=== PATIENT | male | born 1955 | race Caucasian/White ===

== ENCOUNTER → 2017-07-18 | Outpatient (CLI) | payer BC ==
[~2017-07-18] MED LIST: AMLO-114 PO; HYDR100T12 PO; LISI-788 PO; METO-479 PO
[2017-07-18 12:18] LABS: HEMATOCRIT 39.7 % (42-52); MEAN CELL VOLUME 83.8 fL (80-100); MEAN CORPUSCULAR HEMOGLOBIN 27.4 pg (25-34); MEAN CORPUSCULAR HGB CONC 32.7 g/dl (32-36); MEAN PLATELET VOLUME 9.6 fL (7.4-10.4); PLATELET COUNT 319 K/uL (130-400); RED BLOOD COUNT 4.74 M/uL (4.7-6.1); WHITE BLOOD COUNT 6.92 K/uL (4.8-10.8)
[2017-07-18 12:29] LABS: INR 0.9 (0.9-1.1); PARTIAL THROMBOPLASTIN RATIO 1.1; PROTHROMBIN TIME (PATIENT) 9.9 SECONDS (9.0-12.0)
[2017-07-18 13:02] LABS: BLOOD UREA NITROGEN 19 mg/dl (7-18); CALCIUM 9.1 mg/dl (8.5-10.1); CARBON DIOXIDE 28 mmol/L (21-32); CHLORIDE 104 mmol/L (98-107); CREATININE 1.13 mg/dl (0.60-1.40); GLUCOSE 106 mg/dl (70-99); SODIUM 138 mmol/L (136-145)
== END | disposition home or self-care (01) ==
LOC: C.LABPBG 10:40
PROVIDERS: ATTEND Internal Medicine Interventional Cardiology
DX: Z01.810 Encounter for preprocedural cardiovascular examination (principal)

== ENCOUNTER 2021-01-16 16:03 | Inpatient (IN) ==
[2021-01-16] MEDS ORDERED: SODIUM CHLORIDE 0.9% 1000ML 1,000 ML IV ONE ×2 (16:08→17:20)
--- NOTE | 2021-01-16 16:17 | Emergency Department Note ---
History of Present Illness General Chief complaint: Illness Stated complaint: UNRESPONSIVE History of Present Illness Provider complaint: Weakness syncope Onset (ago): day(s) 1 Location: abdomen Associated symptoms: + diaphoresis, + syncope and + weakness; no chest pain, no fever/chills, no headaches, no nausea/vomiting and no shortness of breath 65-year-old male on Coumadin presents emergency department for weakness and syncope. Patient arrives via EMS. Patient reports he was feeling weak today. EMS reports the patient was hypotensive on arrival. Patient reports he lost consciousness once earlier today. EMS reports they started fluids on the patient 600 cc normal saline was given and EMS reports that the patient did have a syncopal episode while sitting on the gurney in the ambulance. Per EMS the patient was diaphoretic also. Patient reports that he had a recent endoscopy at [facility] and has been having l eft lower quadrant abdominal pain. No chest pain. No hemoptysis. No difficulty breathing. Patient did receive 1 dose of the COVID-19 vaccine that was [employer]. Home Medications Medication Instructions Recorded Confirmed Type cetirizine 10 mg PO QAM PRN 02/04/20 01/16/21 History lisinopril-hydrochlorothiazide 1 tab PO BID 02/04/20 01/16/21 History spironolactone 25 mg PO QAM 02/04/20 01/16/21 History metronidazole 0.75 % topical gel 1 applic TOPICAL PRN g 09/16/20 01/16/21 History sildenafil (pulm.hypertension) 20 20 mg PO PRN tab 09/16/20 01/16/21 History mg tablet acetaminophen 500 mg capsule 1,000 mg PO BID PRN cap 10/29/20 01/16/21 History metoprolol succinate 25 mg 25 mg PO QPM tab 10/29/20 01/16/21 History tablet,extended release 24 hr furosemide 20 mg tablet 20 mg PO DAILY PRN 12/03/20 01/16/21 History cholecalciferol (vitamin D3) 25 25 mcg PO DAILY 01/10/21 01/16/21 History mcg (1,000 unit) capsule diclofenac sodium 1 % topical gel 1 ea TOPICAL QID PRN 01/10/21 01/16/21 History warfarin 10 mg tablet 5 - 10 mg PO UD tab 01/10/21 01/16/21 History Allergies Allergy/AdvReac Type Severity Reaction Status Date / Time gabapentin AdvReac Intermediate see Verified 01/16/21 18:54 comment: shortness of breath,palpitations Past Med/Surg History Medical History Atrial fibrillation hx, converted to SR on own, asymptomatic since 12/10 Chronic venous insufficiency Has followed with vascular, had attempted L GSV ablation, complicated by knotted guidewire requiring surgical de-tanglement Hypertension Left ventricular dysfunction Per most recent cardio note, EF is in the range of 45%, "possibly nonischemic" Lumbar foraminal stenosis Morbid obesity On anticoagulant therapy Sleep apnea BI-PAP Surgical History History of colonoscopy History of vascular surgery attempted L GSV ablation, complicated by knotted guidewire requiring surgical de-tanglement Social History Smoking Status: Never smoker Second Hand Exposure: No; Hx Alcohol Use: No Hx Substance Use: No Preferred Language: Icelandic Communication Ability: Effective Delivery Supervisor Required: No Beliefs That Will Affect Care: None Current Living Situation: Spouse Other Information That Helps Us Care for You: No Feels Safe at Home: Yes Safety Concerns: Feels Safe At This Time Assistive Devices: BiPap and Glasses Review of Systems A total of 10 systems reviewed and were otherwise negative Physical Exam Vital Signs Vital Signs - 24 hr 01/16/21 16:11 01/16/21 16:29 01/16/21 16:31 Temperature 36.7 C Temperature Source Oral Pulse Rate 107 H 95 H 99 H Pulse Rate from SpO2 Sensor 91 H 99 H Pulse Rhythm Regular Pulse Strength Normal Respiratory Rate 20 19 21 Respiratory Effort / Characteristics Non-Labored Spontaneous Respiratory Depth Normal Respiratory Pattern Regular Blood Pressure 125/78 63/46 L 72/51 L Blood Pressure Mean 93 51 58 Blood Pressure Position Sitting Pulse Oximetry 98 97 96 Oxygen Delivery Method Room Air Sepsis Recent Fever Within 48 Hours No Sepsis New/Unexplained Change in Mental Status No Sepsis Action Taken by Nursing No Action Required 01/16/21 16:38 01/16/21 16:45 01/16/21 17:00 Temperature Temperature Source Pulse Rate 100 H 100 H Pulse Rate from SpO2 Sensor 100 H 97 H Pulse Rhythm Pulse Strength Respiratory Rate 20 20 18 Respiratory Effort / Characteristics Non-Labored Spontaneous Respiratory Depth Respiratory Pattern Blood Pressure 89/51 L 65/32 L Blood Pressure Mean 63 43 Blood Pressure Position Pulse Oximetry 95 96 Oxygen Delivery Method Sepsis Recent Fever Within 48 Hours Sepsis New/Unexplained Change in Mental Status Sepsis Action Taken by Nursing 01/16/21 17:02 01/16/21 17:19 01/16/21 17:54 Temperature Temperature Source Pulse Rate 97 H 99 H 102 H Pulse Rate from SpO2 Sensor 97 H 100 H 102 H Pulse Rhythm Pulse Strength Respiratory Rate 25 H 19 22 Respiratory Effort / Characteristics Respiratory Depth Respiratory Pattern Blood Pressure 73/32 L 96/49 L 111/62 Blood Pressure Mean 45 64 78 Blood Pressure Position Pulse Oximetry 96 99 97 Oxygen Delivery Method Sepsis Recent Fever Within 48 Hours Sepsis New/Unexplained Change in Mental Status Sepsis Action Taken by Nursing 01/16/21 18:00 01/16/21 18:03 01/16/21 18:15 Temperature Temperature Source Pulse Rate 110 H 108 H Pulse Rate from SpO2 Sensor 109 H 109 H Pulse Rhythm Pulse Strength Respiratory Rate 24 21 Respiratory Effort / Characteristics Respiratory Depth Respiratory Pattern Blood Pressure 95/68 L 79/61 L Blood Pressure Mean 77 67 Blood Pressure Position Pulse Oximetry 98 98 97 Oxygen Delivery Method Room Air Sepsis Recent Fever Within 48 Hours Sepsis New/Unexplained Change in Mental Status Sepsis Action Taken by Nursing 01/16/21 18:25 01/16/21 18:31 01/16/21 18:45 Temperature Temperature Source Pulse Rate Pulse Rate from SpO2 Sensor 102 H 98 H 98 H Pulse Rhythm Pulse Strength Respiratory Rate Respiratory Effort / Characteristics Respiratory Depth Respiratory Pattern Blood Pressure 94/65 L 132/92 112/71 Blood Pressure Mean 74 105 84 Blood Pressure Position Pulse Oximetry 99 98 96 Oxygen Delivery Method Sepsis Recent Fever Within 48 Hours Sepsis New/Unexplained Change in Mental Status Sepsis Action Taken by Nursing 01/16/21 19:00 01/16/21 19:15 01/16/21 19:21 Temperature Temperature Source Pulse Rate 108 H 107 H Pulse Rate from SpO2 Sensor 95 H 105 H 108 H Pulse Rhythm Pulse Strength Respiratory Rate 15 24 Respiratory Effort / Characteristics Respiratory Depth Respiratory Pattern Blood Pressure 98/62 L Blood Pressure Mean 74 Blood Pressure Position Pulse Oximetry 97 96 97 Oxygen Delivery Method Sepsis Recent Fever Within 48 Hours Sepsis New/Unexplained Change in Mental Status Sepsis Action Taken by Nursing 01/16/21 19:30 Temperature Temperature Source Pulse Rate 104 H Pulse Rate from SpO2 Sensor 105 H Pulse Rhythm Pulse Strength Respiratory Rate 12 Respiratory Effort / Characteristics Respiratory Depth Respiratory Pattern Blood Pressure 115/72 Blood Pressure Mean 86 Blood Pressure Position Pulse Oximetry 97 Oxygen Delivery Method Sepsis Recent Fever Within 48 Hours Sepsis New/Unexplained Change in Mental Status Sepsis Action Taken by Nursing Physical Exam GENERAL: He is oriented to person, place, and time. He appears well-developed and well-nourished. He does not appear distressed. HENT: Exam performed. - Head: Normocephalic and atraumatic. - Right Ear: External ear normal. No mastoid tenderness. - Left Ear: External ear normal. No mastoid tenderness. - Mouth/Throat: The oropharynx is clear and moist. No trismus in the jaw. No dental abscesses or uvula swelling. No oropharyngeal exudate or tonsillar abscesses. EYES: Conjunctivae and EOM are normal. Pupils are equal, round, and reactive to light. Right eye exhibits no discharge. Left eye exhibits no discharge. No scleral icterus. NECK: Normal range of motion. Neck supple. No JVD present. No spinous process tenderness present. No carotid bruit present. No rigidity. No tracheal deviation and normal range of motion present. No Brudzinski's sign and no Kernig's sign noted. CV: Tachycardic rate, regular rhythm, normal heart sounds and intact distal pulses. There is no peripheral edema. Palpable radial pulses bue. PULM/CHEST: Effort normal and breath sounds normal. No respiratory distress. No stridor. He has no wheezes. He has no rales. - Chest Wall: He exhibits no tenderness. ABD: The abdomen is soft and obese. Bowel sounds are normal. He has no distension. No mass is present. There is tenderness to the left lower quadrant. There is no rebound, no guarding, no Marr's sign and no tenderness at McBurney's point. Rovsig negative. MUSC/SKEL: Normal range of motion. There is no peripheral edema, tenderness or deformity. LYMPH: No cervical adenopathy. NEURO: He is alert and oriented to person, place, and time. He has normal strength. No cranial nerve deficit or sensory deficit. Coordination and gait normal. GCS eye subscore is 4. GCS verbal subscore is 5. GCS motor subscore is 6. Cerebellar tests wnl. SKIN: Skin is warm and dry. He is not diaphoretic. PSYCH: He has a normal mood and affect. Behavior is normal. Judgment and thought content normal. Procedures EJ/Peripheral Line Arm R: Time Out Performed: Yes Skin Cleansed in Sterile Fashion: Yes Size (gauge): 20 IV Secured and Dressing Applied: Yes Patient Tolerated Procedure: well Additional Comments: US guided Course Course 1603: The patient was evaluated in room A1. A complete history and physical exam was performed Cardiac monitoring: An order was placed for continuous cardiac monitoring. The monitor shows a rate of 110 with sinus tachycardia rhythm 1930: Vital signs improved after fluid bolus. Labs show a hemoglobin of 10.9. Blood cell count of 12.1. INR is therapeutic at 2.8. BUN 63. Creatinine 1.28. Initial lactic acid 3.2. Status post IV fluids the lactate improved to 2.4. Procalcitonin negative. CT of the head is within normal limits. CT of the abdomen showed extensive material in the stomach which could represent hemorrhage or ingested food. Patient has not had any episodes of bleeding or vomiting in the emergency department. Patient will be admitted to the [facility] Dr. Villatoro's team has been notified. Administered Medications Pantoprazole Sodium 40 mg/ (Dextrose) 100 mls @ 20 mls/hr IV Q5H [facility] Stop: 02/15/21 19:49 Last Admin: 01/16/21 20:21 Dose: 8 mg/hr, 20 mls/hr Documented by: [id number] Discontinued Medications Sodium Chloride (Nss 1000ml) 1,000 mls @ 999 mls/hr IV .Q1H1M ONE Stop: 01/16/21 17:08 Last Infusion: 01/16/21 19:39 Dose: 0 mls/hr Documented by: [id number] Admin: 01/16/21 16:26 Dose: 999 mls/hr Documented by: [id number] Sodium Chloride (Nss 1000ml) 1,000 mls @ 125 mls/hr IV .Q8H [facility] Stop: 02/15/21 16:44 Last Infusion: 01/16/21 21:43 Dose: 0 mls/hr Documented by: [id number] Admin: 01/16/21 18:15 Dose: 125 mls/hr Documented by: [id number] Sodium Chloride (Nss 1000ml) 1,000 mls @ 999 mls/hr IV .Q1H1M ONE Stop: 01/16/21 18:20 Last Infusion: 01/16/21 19:39 Dose: 0 mls/hr Documented by: [id number] Admin: 01/16/21 17:22 Dose: 999 mls/hr Documented by: [id number] Pantoprazole Sodium (Protonix Bolus/Drip) 0 mls @ 1 mls/hr IV ONE STA Stop: 01/16/21 19:37 Last Admin: 01/16/21 21:43 Dose: Not Given Documented by: [id number] Pantoprazole Sodium 80 mg/ (Dextrose) 120 mls @ 400 mls/hr IV NOW ONE Stop: 01/16/21 19:53 Last Infusion: 01/16/21 21:42 Dose: 0 mls/hr Documented by: [id number] Admin: 01/16/21 20:03 Dose: 400 mls/hr Documented by: [id number] Phytonadione 5 mg/ Sodium (Chloride) 50.5 mls @ 101 mls/hr IV ONE ONE Stop: 01/16/21 20:28 Last Infusion: 01/16/21 21:43 Dose: 0 mls/hr Documented by: [id number] Admin: 01/16/21 20:40 Dose: 101 mls/hr Documented by: [id number] Ioversol (Optiray 300 100ml) 93 ml IV ONCE ONE Stop: 01/16/21 17:43 Last Admin: 01/16/21 17:42 Dose: 93 ml Documented by: [id number] Ondansetron HCl (Ondansetron Inj 2 Mg/Ml 2 Ml Vial) 4 mg IV NOW STA Stop: 01/16/21 16:47 Last Admin: 01/16/21 17:10 Dose: 4 mg Documented by: [id number] Ondansetron HCl (Ondansetron Inj 2 Mg/Ml 2 Ml Vial) Confirm Administered Dose 4 mg .ROUTE .STK-MED ONE Stop: 01/16/21 16:48 Last Admin: 01/16/21 17:22 Dose: Not Given Documented by: [id number] Medical Decision Making Laboratory Data Result diagrams: 01/16/21 22:29 01/16/21 15:29 Lab Results 01/16/21 01/16/21 01/16/21 Range/Units 15:29 15:29 15:29 WBC 12.10 H (4.8-10.8) K/uL RBC 3.87 L (4.7-6.1) M/uL Hgb 10.9 L (14.0-18.0) g/dL Hct 32.9 L (42-52) % MCV 85.0 (80-100) fL MCH 28.2 (25-34) pg MCHC 33.1 (32-36) g/dL RDW Std Deviation 45.9 (36.4-46.3) fL RDW Coeff of Edison 14.7 H (11.5-14.5) % Plt Count 368 (130-400) K/uL MPV 9.9 (7.4-10.4) fL Immature Gran % (Auto) 0.2 % Neut % (Auto) 78.1 % Lymph % (Auto) 16.8 % Price % (Auto) 4.1 % Eos % (Auto) 0.4 % Baso % (Auto) 0.4 % Neut # (Auto) 9.45 H (1.4-6.5) K/uL Lymph # (Auto) 2.03 (1.2-3.4) K/uL Price # (Auto) 0.50 (0.11-0.59) K/uL Eos # (Auto) 0.05 (0-0.5) K/uL Baso # (Auto) 0.05 (0-0.2) K/uL Immature Gran # (Auto) 0.02 (0.00-0.02) K/uL PT 26.4 H (9.0-12.0) Seconds INR 2.8 H (0.9-1.1) APTT 37.6 H (21.0-31.0) Seconds PTT Ratio 1.4 Sodium 139 (136-145) mmol/L Potassium 4.9 (3.5-5.1) mmol/L Chloride 105 (98-107) mmol/L Carbon Dioxide 23 (21-32) mmol/L Anion Gap 10.0 (3-11) BUN 63 H (7-18) mg/dl Creatinine 1.28 (0.6-1.4) mg/dl Est Cr Clr Drug Dosing 83.9 ml/min Est GFR ( Amer) 68.6 Est GFR (Non-Af Amer) 59.2 BUN/Creatinine Ratio 48.8 H (10-20) Glucose 117 H (70-99) mg/dl Lactate (0.4-2.0) mmol/L Calcium 9.0 (8.5-10.1) mg/dl Magnesium 2.1 (1.8-2.4) mg/dl Total Bilirubin 0.6 (0.2-1) mg/dl AST 13 L (15-37) U/L ALT 18 (12-78) U/L Alkaline Phosphatase 58 (45-117) U/L Troponin I < 0.015 (0-0.045) ng/ml Total Protein 6.6 (6.4-8.2) gm/dl Albumin 2.9 L (3.4-5.0) gm/dl Globulin 3.7 (2.5-4.0) gm/dl Albumin/Globulin Ratio 0.8 L (0.9-2) Procalcitonin (0-0.5) ng/ml Urine Color Urine Appearance (Clear) Urine pH (4.5-7.5) Ur Specific [place] (1.000-1.030) Urine Protein (Negative) Urine Glucose (UA) (Negative) Urine Ketones (Negative) Urine Blood (Negative) Urine Nitrite (Negative) Urine Bilirubin (Negative) Urine Urobilinogen (Negative) Ur Leukocyte Esterase (Negative) COVID-19 Eval Order SARS-CoV-2 (PCR) (Negative) Hepatitis C Ab Screen (Neg) Influenza Type A (PCR) (Neg) Influenza Type B (PCR) (Neg) RSV (RT-PCR) (Neg) Blood Type Antibody Screen Crossmatch 01/16/21 01/16/21 01/16/21 Range/Units 15:29 15:29 16:28 WBC (4.8-10.8) K/uL RBC (4.7-6.1) M/uL Hgb (14.0-18.0) g/dL Hct (42-52) % MCV (80-100) fL MCH (25-34) pg MCHC (32-36) g/dL RDW Std Deviation (36.4-46.3) fL RDW Coeff of Edison (11.5-14.5) % Plt Count (130-400) K/uL MPV (7.4-10.4) fL Immature Gran % (Auto) % Neut % (Auto) % Lymph % (Auto) % Price % (Auto) % Eos % (Auto) % Baso % (Auto) % Neut # (Auto) (1.4-6.5) K/uL Lymph # (Auto) (1.2-3.4) K/uL Price # (Auto) (0.11-0.59) K/uL Eos # (Auto) (0-0.5) K/uL Baso # (Auto) (0-0.2) K/uL Immature Gran # (Auto) (0.00-0.02) K/uL PT (9.0-12.0) Seconds INR (0.9-1.1) APTT (21.0-31.0) Seconds PTT Ratio Sodium (136-145) mmol/L Potassium (3.5-5.1) mmol/L Chloride (98-107) mmol/L Carbon Dioxide (21-32) mmol/L Anion Gap (3-11) BUN (7-18) mg/dl Creatinine (0.6-1.4) mg/dl Est Cr Clr Drug Dosing ml/min Est GFR ( Amer) Est GFR (Non-Af Amer) BUN/Creatinine Ratio (10-20) Glucose (70-99) mg/dl Lactate (0.4-2.0) mmol/L Calcium (8.5-10.1) mg/dl Magnesium (1.8-2.4) mg/dl Total Bilirubin (0.2-1) mg/dl AST (15-37) U/L ALT (12-78) U/L Alkaline Phosphatase (45-117) U/L Troponin I (0-0.045) ng/ml Total Protein (6.4-8.2) gm/dl Albumin (3.4-5.0) gm/dl Globulin (2.5-4.0) gm/dl Albumin/Globulin Ratio (0.9-2) Procalcitonin < 0.05 (0-0.5) ng/ml Urine Color Urine Appearance (Clear) Urine pH (4.5-7.5) Ur Specific [place] (1.000-1.030) Urine Protein (Negative) Urine Glucose (UA) (Negative) Urine Ketones (Negative) Urine Blood (Negative) Urine Nitrite (Negative) Urine Bilirubin (Negative) Urine Urobilinogen (Negative) Ur Leukocyte Esterase (Negative) COVID-19 Eval Order CovFluRsv at [facility] SARS-CoV-2 (PCR) (Negative) Hepatitis C Ab Screen Neg (Neg) Influenza Type A (PCR) (Neg) Influenza Type B (PCR) (Neg) RSV (RT-PCR) (Neg) Blood Type Antibody Screen Crossmatch 01/16/21 01/16/21 01/16/21 Range/Units 16:28 16:37 18:49 WBC (4.8-10.8) K/uL RBC (4.7-6.1) M/uL Hgb (14.0-18.0) g/dL Hct (42-52) % MCV (80-100) fL MCH (25-34) pg MCHC (32-36) g/dL RDW Std Deviation (36.4-46.3) fL RDW Coeff of Edison (11.5-14.5) % Plt Count (130-400) K/uL MPV (7.4-10.4) fL Immature Gran % (Auto) % Neut % (Auto) % Lymph % (Auto) % Price % (Auto) % Eos % (Auto) % Baso % (Auto) % Neut # (Auto) (1.4-6.5) K/uL Lymph # (Auto) (1.2-3.4) K/uL Price # (Auto) (0.11-0.59) K/uL Eos # (Auto) (0-0.5) K/uL Baso # (Auto) (0-0.2) K/uL Immature Gran # (Auto) (0.00-0.02) K/uL PT (9.0-12.0) Seconds INR (0.9-1.1) APTT (21.0-31.0) Seconds PTT Ratio Sodium (136-145) mmol/L Potassium (3.5-5.1) mmol/L Chloride (98-107) mmol/L Carbon Dioxide (21-32) mmol/L Anion Gap (3-11) BUN (7-18) mg/dl Creatinine (0.6-1.4) mg/dl Est Cr Clr Drug Dosing ml/min Est GFR ( Amer) Est GFR (Non-Af Amer) BUN/Creatinine Ratio (10-20) Glucose (70-99) mg/dl Lactate 3.2 H* (0.4-2.0) mmol/L Calcium (8.5-10.1) mg/dl Magnesium (1.8-2.4) mg/dl Total Bilirubin (0.2-1) mg/dl AST (15-37) U/L ALT (12-78) U/L Alkaline Phosphatase (45-117) U/L Troponin I (0-0.045) ng/ml Total Protein (6.4-8.2) gm/dl Albumin (3.4-5.0) gm/dl Globulin (2.5-4.0) gm/dl Albumin/Globulin Ratio (0.9-2) Procalcitonin (0-0.5) ng/ml Urine Color Yellow Urine Appearance Clear (Clear) Urine pH 5.0 (4.5-7.5) Ur Specific [place] 1.031 H (1.000-1.030) Urine Protein Negative (Negative) Urine Glucose (UA) Negative (Negative) Urine Ketones Trace H (Negative) Urine Blood Negative (Negative) Urine Nitrite Negative (Negative) Urine Bilirubin Negative (Negative) Urine Urobilinogen Negative (Negative) Ur Leukocyte Esterase Negative (Negative) COVID-19 Eval Order SARS-CoV-2 (PCR) NEGATIVE (Negative) Hepatitis C Ab Screen (Neg) Influenza Type A (PCR) Negative (Neg) Influenza Type B (PCR) Negative (Neg) RSV (RT-PCR) Negative (Neg) Blood Type Antibody Screen Crossmatch 01/16/21 01/16/21 Range/Units 19:38 19:38 WBC (4.8-10.8) K/uL RBC (4.7-6.1) M/uL Hgb (14.0-18.0) g/dL Hct (42-52) % MCV (80-100) fL MCH (25-34) pg MCHC (32-36) g/dL RDW Std Deviation (36.4-46.3) fL RDW Coeff of Edison (11.5-14.5) % Plt Count (130-400) K/uL MPV (7.4-10.4) fL Immature Gran % (Auto) % Neut % (Auto) % Lymph % (Auto) % Price % (Auto) % Eos % (Auto) % Baso % (Auto) % Neut # (Auto) (1.4-6.5) K/uL Lymph # (Auto) (1.2-3.4) K/uL Price # (Auto) (0.11-0.59) K/uL Eos # (Auto) (0-0.5) K/uL Baso # (Auto) (0-0.2) K/uL Immature Gran # (Auto) (0.00-0.02) K/uL PT (9.0-12.0) Seconds INR (0.9-1.1) APTT (21.0-31.0) Seconds PTT Ratio Sodium (136-145) mmol/L Potassium (3.5-5.1) mmol/L Chloride (98-107) mmol/L Carbon Dioxide (21-32) mmol/L Anion Gap (3-11) BUN (7-18) mg/dl Creatinine (0.6-1.4) mg/dl Est Cr Clr Drug Dosing ml/min Est GFR ( Amer) Est GFR (Non-Af Amer) BUN/Creatinine Ratio (10-20) Glucose (70-99) mg/dl Lactate 2.4 H* (0.4-2.0) mmol/L Calcium (8.5-10.1) mg/dl Magnesium (1.8-2.4) mg/dl Total Bilirubin (0.2-1) mg/dl AST (15-37) U/L ALT (12-78) U/L Alkaline Phosphatase (45-117) U/L Troponin I (0-0.045) ng/ml Total Protein (6.4-8.2) gm/dl Albumin (3.4-5.0) gm/dl Globulin (2.5-4.0) gm/dl Albumin/Globulin Ratio (0.9-2) Procalcitonin (0-0.5) ng/ml Urine Color Urine Appearance (Clear) Urine pH (4.5-7.5) Ur Specific [place] (1.000-1.030) Urine Protein (Negative) Urine Glucose (UA) (Negative) Urine Ketones (Negative) Urine Blood (Negative) Urine Nitrite (Negative) Urine Bilirubin (Negative) Urine Urobilinogen (Negative) Ur Leukocyte Esterase (Negative) COVID-19 Eval Order SARS-CoV-2 (PCR) (Negative) Hepatitis C Ab Screen (Neg) Influenza Type A (PCR) (Neg) Influenza Type B (PCR) (Neg) RSV (RT-PCR) (Neg) Blood Type O Positive Antibody Screen NEGATIVE Crossmatch See Detail Imaging Data Radiologist's Impression: Chest X-Ray 01/16/21 16:08 XR chest 1V portable CLINICAL HISTORY: Sepsis. COMPARISON STUDY: Chest radiograph January 10, 2016. FINDINGS: Lung volumes are normal. Lungs are clear. There is no pneumothorax or pleural effusion. Cardiac size is stable. Mediastinal contours are normal. There is no evidence for pulmonary edema. IMPRESSION: No acute cardiopulmonary findings. ACT 112: Negative or not required by law. Electronically signed by: Adrian Hayes M.D. 01/16/2021 6:08 PM Abdomen/Pelvis CT 01/16/21 16:09 CT OF THE ABDOMEN AND PELVIS WITH CONTRAST CLINICAL HISTORY: Abdominal pain. Recent endoscopy. COMPARISON STUDY: None. TECHNIQUE: Following IV administration of 93 mL of Optiray, axial images of the abdomen and pelvis were obtained from the lung bases to the proximal femurs. Images were reviewed in the axial, sagittal, and coronal planes. IV contrast was administered without complication. Automated exposure control was utilized for the study. A dose lowering technique was utilized adhering to the principles of ALARA. CT DOSE: 2172.35 mGy.cm FINDINGS: Lung bases are unremarkable. No pneumatosis, free air or portal venous gas is present. Extensive mixed attenuation material within the stomach is noted with layering hyperdense material. The stomach is mildly distended. Hepatic steatosis is noted. No hepatic lesions are present. There is no biliary or pancreatic ductal dilatation. The spleen and adrenal glands as well as the left kidney are normal. Note is made of a 5.6 cm water attenuation right renal lesion consistent with a cyst. There is no hydronephrosis. The caliber and wall thickness of small and large bowel are normal. Note is made of colonic diverticulosis without evidence for acute diverticulitis. The appendix is normal. No acute fracture or suspicious lesion is identified within the visualized skeletal structures. IMPRESSION: 1. Extensive mixed attenuation material within the stomach. This probably reflects ingested contents however hemorrhage could appear similar. Correlation with clinical evidence for upper GI bleed is recommended. 2. No pneumoperitoneum. 3. Colonic diverticulosis without evidence for acute diverticulitis. 4. Hepatic steatosis. ACT 112: Negative or not required by law. Electronically signed by: Adrian Hayes M.D. 01/16/2021 6:[address] 01/16/21 16:09 CT OF THE HEAD WITHOUT CONTRAST CLINICAL HISTORY: syncope on coumadin ro ich COMPARISON STUDY: Head CT May 27, 2020. CT DOSE: 884.08 mGy.cm TECHNIQUE: Helical axial images of the head were obtained without IV contrast. Automated exposure control was utilized for the study. A dose lowering technique was utilized adhering to the principles of ALARA. FINDINGS: No acute intracranial hemorrhage, midline shift or mass effect is present. The ventricular system is unremarkable. The basal cisterns are patent. No extra-axial collections are present. There are no findings to suggest acute dural sinus thrombosis or acute territorial infarct. No significant calvarial abnormalities are present. Visualized portions of the sinuses and mastoid air cells are clear. IMPRESSION: No acute intracranial findings. ACT 112: Negative or not required by law. Electronically signed by: Adrian Hayes M.D. 01/16/2021 6:10 PM ECG Data Indication: + weakness Rate (beats per minute): 106 Rhythm: + sinus with SA ECG Intervals/blocks: + Normal QRS, + Normal NM and + Normal QT-c ECG ST segments: + Normal ST segments MDM Narrative 1603: The patient was evaluated in room A1. A complete history and physical exam was performed Cardiac monitoring: An order was placed for continuous cardiac monitoring. The monitor shows a rate of 110 with sinus tachycardia rhythm 1930: Vital signs improved after fluid bolus. Labs show a hemoglobin of 10.9. Blood cell count of 12.1. INR is therapeutic at 2.8. BUN 63. Creatinine 1.28. Initial lactic acid 3.2. Status post IV fluids the lactate improved to 2.4. Procalcitonin negative. CT of the head is within normal limits. CT of the abdomen showed extensive material in the stomach which could represent hemorrhage or ingested food. Patient has not had any episodes of bleeding or vomiting in the emergency department. Patient will be admitted to the [facility] Dr. Villatoro's team has been notified. Impression & Plan Syncope, Dehydration Discharge Plan Visit Data Chief Complaint: Illness Stated Complaint: UNRESPONSIVE ED Provider: Manuel Akhtar Discharge Problem: Syncope, Dehydration Patient Disposition: Admitted As Inpatient Discharge Instructions Interventions: ED Discharge Assessment Last Done: 01/16/21 20:51 Discharge Problem: Syncope Qualifiers: Syncope type: unspecified Qualified Code(s): R55 - Syncope and collapse
[2021-01-16 16:21] LABS: Basophils # (auto) 0.05 K/uL (0-0.2); Basophils % (auto) 0.4 %; Eosinophils # (auto) 0.05 K/uL (0-0.5); Eosinophils % (auto) 0.4 %; Hematocrit (blood only) 32.9 % (42-52); Hemoglobin 10.9 g/dL (14.0-18.0); Immature Granulocytes # (auto) 0.02 K/uL (0.00-0.02); Immature Granulocytes % (auto) 0.2 %; Lymphocytes # (auto) 2.03 K/uL (1.2-3.4); Lymphocytes % (auto) 16.8 %; Mean Corpuscular Hemoglobin 28.2 pg (25-34); Mean Corpuscular Hgb Conc 33.1 g/dL (32-36); Mean Platelet Volume 9.9 fL (7.4-10.4); Monocytes % (auto) 4.1 %; Neutrophils # (auto) 9.45 K/uL (1.4-6.5); Neutrophils % (auto) 78.1 %; Platelet Count 368 K/uL (130-400); RDW Coefficient of Variation 14.7 % (11.5-14.5); RDW Standard Deviation 45.9 fL (36.4-46.3); Red Blood Count 3.87 M/uL (4.7-6.1)
[2021-01-16 16:29] LABS: INR 2.8 (0.9-1.1); Partial Thromboplastin Ratio 1.4; Partial Thromboplastin Time 37.6 Seconds (21.0-31.0); Prothrombin Time 26.4 Seconds (9.0-12.0)
[2021-01-16 16:34] LABS: Alanine Aminotransferase 18 U/L (12-78); Albumin Level 2.9 gm/dl (3.4-5.0); Aspartate Aminotransferase 13 U/L (15-37); BUN Creatinine Ratio 48.8 (10-20); Blood Urea Nitrogen 63 mg/dl (7-18); Carbon Dioxide 23 mmol/L (21-32); Chloride 105 mmol/L (98-107); Creatinine Clr Calc Pharmacy 83.9 ml/min; Est GFR (African American) 68.6; Est GFR (Non-African American) 59.2; Glucose 117 mg/dl (70-99); Magnesium 2.1 mg/dl (1.8-2.4); Potassium 4.9 mmol/L (3.5-5.1); Sodium 139 mmol/L (136-145)
[2021-01-16 16:39] LABS: Albumin Globulin Ratio 0.8 (0.9-2); Alkaline Phosphatase 58 U/L (45-117); Bilirubin,Total 0.6 mg/dl (0.2-1); Globulin 3.7 gm/dl (2.5-4.0); Total Protein 6.6 gm/dl (6.4-8.2); Troponin I < 0.015 ng/ml (0-0.045)
[2021-01-16] MEDS ORDERED: SODIUM CHLORIDE 0.9% 1000ML 1,000 ML IV SCH (16:45)
[2021-01-16] MEDS ORDERED: ONDANSETRON INJ 2 MG/ML 2 ML VIAL IV STA (16:46)
[2021-01-16] MEDS ORDERED: ONDANSETRON INJ 2 MG/ML 2 ML VIAL ONE (16:47)
[2021-01-16 17:20] LABS: Influenza A virus by PCR Negative (Neg); Influenza B virus by PCR Negative (Neg); RSV by PCR Negative (Neg); SARS CoV2 RNA(COVID-19) InHosp NEGATIVE (Negative)
[2021-01-16] MEDS ORDERED: OPTIRAY 300 100mL IV ONE (17:42)
--- NOTE | 2021-01-16 18:09 | XRay Report ---
XR chest 1V portable CLINICAL HISTORY: Sepsis. COMPARISON STUDY: Chest radiograph January 10, 2016. FINDINGS: Lung volumes are normal. Lungs are clear. There is no pneumothorax or pleural effusion. Car diac size is stable. Mediastinal contours are normal. There is no evidence for pulmonary edema. IMPRESSION: No acute cardiopulmonary findings. ACT 112: Negative or not required by law. Electronically signed by: Adrian Hayes M.D. 01/16/2021 6:08 PM
--- NOTE | 2021-01-16 18:12 | CT Scan Report ---
CT OF THE HEAD WITHOUT CONTRAST CLINICAL HISTORY: syncope on coumadin ro ich COMPARISON STUDY: Head CT May 27, 2020. CT DOSE: 884.08 mGy.cm TECHNIQUE: Helical axial images of the head were obtained without IV contrast. Automated exposure con trol was utilized for the study. A dose lowering technique was utilized adhering to the principles o f ALARA. FINDINGS: No acute intracranial hemorrhage, midline shift or mass effect is present. The ventricular system is unremarkable. The basal cisterns are patent. No extra-axial collections are present. There are no findings to suggest acute dural sinus thrombosis or acute territorial infarct. No significant calvarial abnormalities are present. Visualized portions of the sinuses and mastoid air cells are cristiane ar. IMPRESSION: No acute intracranial findings. ACT 112: Negative or not required by law. Electronically signed by: Adrian Hayes M.D. 01/16/2021 6:10 PM
--- NOTE | 2021-01-16 18:33 | CT Scan Report ---
CT OF THE ABDOMEN AND PELVIS WITH CONTRAST CLINICAL HISTORY: Abdominal pain. Recent endoscopy. COMPARISON STUDY: None. TECHNIQUE: Following IV administration of 93 mL of Optiray, axial images of the abdomen and pelvis we re obtained from the lung bases to the proximal femurs. Images were reviewed in the axial, sagittal, and coronal planes. IV contrast was administered without complication. Automated exposure control wa s utilized for the study. A dose lowering technique was utilized adhering to the principles of ALARA . CT DOSE: 2172.35 mGy.cm FINDINGS: Lung bases are unremarkable. No pneumatosis, free air or portal venous gas is present. Exte nsive mixed attenuation material within the stomach is noted with layering hyperdense material. The s tomach is mildly distended. Hepatic steatosis is noted. No hepatic lesions are present. There is no b iliary or pancreatic ductal dilatation. The spleen and adrenal glands as well as the left kidney are normal. Note is made of a 5.6 cm water attenuation right renal lesion consistent with a cyst. There i s no hydronephrosis. The caliber and wall thickness of small and large bowel are normal. Note is made of colonic diverticulosis without evidence for acute diverticulitis. The appendix is normal. No acut e fracture or suspicious lesion is identified within the visualized skeletal structures. IMPRESSION: 1. Extensive mixed attenuation material within the stomach. This probably reflects ingested contents however hemorrhage could appear similar. Correlation with clinical evidence for upper GI bleed is rec ommended. 2. No pneumoperitoneum. 3. Colonic diverticulosis without evidence for acute diverticulitis. 4. Hepatic steatosis. ACT 112: Negative or not required by law. Electronically signed by: Adrian Hayes M.D. 01/16/2021 6:32 PM
[2021-01-16 18:56] LABS: Appearance Urine Clear (Clear); Bilirubin Urine Negative (Negative); Blood Urine Negative (Negative); Color Urine Yellow; Glucose Urine UA Negative (Negative); Ketones Urine Trace (Negative); Leukocyte Esterase Urine Negative (Negative); Nitrite Urine Negative (Negative); Protein Urine Negative (Negative); Specific Gravity Urine 1.031 (1.000-1.030); Urobilinogen Urine Negative (Negative)
[2021-01-16] MEDS ORDERED: PANTOPRAZOLE BOLUS/DRIP 1 EA IV STA (19:36)
[2021-01-16] MEDS ORDERED: PANTOprazole 80 MG in DEXTROSE 5% 100 ML IV ONE (19:36)
--- NOTE | 2021-01-16 19:41 | History & Physical Report ---
Date of Service January 16, 2021 Assessment & Plan (1) UGI bleed: Patient presented hypotensive, syncope x2, HGB 10.9, and dark stool x1 this morning--- HGB 13.6 on [id number] - [place]- 10 - Type and screen done - consented for blood - Large bore IV x2- - Protonix bolus and drip - NPO - HGB at 2200- transfuse if HGB drops, evidence of ongoing blood loss - NGT if hematemesis - GI consulted - Vitamin K 5 mg IV- INR 2.8- Patient in NSR has been for some while. - Trend Troponin I and ECG with nonspecific changes as acute blood loss was likely this morning His BP is stabilized 115/72 MAP >75. HR low 100 as above (2) Duodenitis: As above - Continue on PPI as outpatient (3) HTN (hypertension): Hold all antihypertensives - Restart when hemodynamically stable (4) Morbid obesity: No acute needs (5) Venous stasis ulcer: Chronic, no acute needs (6) Afib: restart metoprlol when able - Continue BIPAP (7) Diastolic CHF: Preserved EF - Hold diuretics until hemodynamically stable (8) DIANDRA treated with BiPAP: BIPAP 12/06 or titrate to patient needs for adequate VT and SPO2. (9) CKD (chronic kidney disease), stage III: He has a baseline [employer] of 1.31 and BUN 22 on April - BUN elevated with GI bleed - Follow [employer] History of Present Illness Chief Complaint: light headedness and syncope Primary Care Provider: Black Cruz MD 65 YOM with past history of atrial fibrillation on Coumadin. He had afib ~2 years ago and after he was started on his BIPAP for DIANDRA, he went back into NSR, also has HTN, PVD with right GSV ablation, HFpEF with mild LVH grade I diastolic dysfunction, chronic left hip pain. He was getting evaluated for bariatric surgery. He went to [place] last week to get an EGD in which he got 2 biopsies. His report was positive for active duodenitis with reactive epithelial cell and gastric metaplasia consistent with peptic duodenitis, GE junction with squamous reactive epithelial changes and severely inflamed mucosa with goblet cells. He called 911 this morning for 2 periods of lightheadedness, dizziness, and paleness. He awoke at 700 this morning and sat on the edge of the bed and got weak, sweaty, and dizzy. He got to the bathroom, and went back to bed because he was so tired felling. He got up at 0900 had a dark black stool that was formed, he has never had this before. He got back up at 1000 and felt like he was going to throw up, his went to get a bucket and when she came back he was passed out on the bed, this lasted few seconds. He came to on his own and she checked his blood pressure; it was noted to be 80's systolic, with pulse 11 0. He again was pale, diaphoretic, and lightheaded. EMS brought him in and reported another episode of syncope. In the EMD he got a CT scan of his abdomen and 3 liters of 0.9% saline in response to his hypotension. The Hospitalist team was then notified for admission. Upon my evaluation the patient was noted to be awake alert, HR 100's and BP >100 with MAPS >65. He was then typed and screened, consented for blood by my staff Dr. Villatoro, and a second IV was obtained to his AC, Protonix bolus and drip was ordered. Patient will be admitted to PCU for trending of his hemodynamics as well as CBC. Will give 5mg Vitamin K. NPO for now. GI consulted. Upon further review the patient has been taking Celebrex for his left hip pain that is chronically been bothering him. He was asked to stop that 3 weeks ago secondary to worsening of his GFR. He reports normal diet and has successfully lost 20 pounds on purpose in preparation for his Bariatric appointments. He last ate [id number] dinner around 1800. He has been having epigastric pain for the past 3 weeks that does get worse when he eats. The pain is sharp and comes and goes. He denies any other chest discomfort or dyspnea. Allergies Allergy/AdvReac Type Severity Reaction Status Date / Time gabapentin AdvReac Intermediate see Verified 01/16/21 18:54 comment: shortness of breath,palpitations Home Medications Medication Instructions Recorded Confirmed Type cetirizine 10 mg PO QAM PRN 02/04/20 01/16/21 History lisinopril-hydrochlorothiazide 1 tab PO BID 02/04/20 01/16/21 History spironolactone 25 mg PO QAM 02/04/20 01/16/21 History metronidazole 0.75 % topical gel 1 applic TOPICAL PRN g 09/16/20 01/16/21 History sildenafil (pulm.hypertension) 20 20 mg PO PRN tab 09/16/20 01/16/21 History mg tablet acetaminophen 500 mg capsule 1,000 mg PO BID PRN cap 10/29/20 01/16/21 History metoprolol succinate 25 mg 25 mg PO QPM tab 10/29/20 01/16/21 History tablet,extended release 24 hr furosemide 20 mg tablet 20 mg PO DAILY PRN 12/03/20 01/16/21 History cholecalciferol (vitamin D3) 25 25 mcg PO DAILY 01/10/21 01/16/21 History mcg (1,000 unit) capsule diclofenac sodium 1 % topical gel 1 ea TOPICAL QID PRN 01/10/21 01/16/21 History warfarin 10 mg tablet 5 - 10 mg PO UD tab 01/10/21 01/16/21 History Past Med/Surg History Medical History Atrial fibrillation hx, converted to SR on own, asymptomatic since 12/10 Chronic venous insufficiency Has followed with vascular, had attempted L GSV ablation, complicated by knotted guidewire requiring surgical de-tanglement Hypertension Left ventricular dysfunction Per most recent cardio note, EF is in the range of 45%, "possibly nonischemic" Lumbar foraminal stenosis Morbid obesity On anticoagulant therapy Sleep apnea BI-PAP Surgical History History of colonoscopy History of vascular surgery attempted L GSV ablation, complicated by knotted guidewire requiring surgical de-tanglement Social History Smoking Status: Never smoker Second Hand Exposure: No; Hx Alcohol Use: Yes Alcohol type: beer and wine Hx Substance Use: No Preferred Language: Swedish Communication Ability: Effective Online Media Director Required: No Beliefs That Will Affect Care: None Current Living Situation: Spouse Feels Safe at Home: Yes Assistive Devices: BiPap and Glasses Review of Systems Review of Systems: REVIEW OF SYSTEMS: Constitutional: No fever, sweats or chills Eyes: No diplopia, no worsening or blurred vision ENT: normal hearing, no trouble swallowing Respiratory: No cough, sputum, dyspnea at rest or on exertion Cardiovascular: No chest pain, tightness or palpitations Abdomen: (+) epigastric pain, nausea, dark stool, (-) vomiting, diarrhea or constipation Musculoskeletal: (+) left hip joint pain and back pain, (-) calf pain, swelling Neurologic: No weakness, numbness/tingling, or balance problems Psychiatric: No anxiety or depression Skin: No rash or itch Physical Exam Physical Exam: PHYSICAL EXAM: General: awake, alert, no apparent distress Head: Normocephalic, atraumatic ENT: PERRL, EOMI, no pharyngeal exudate, mucous membranes moist Neuro: AAO x 3, speech clear and appropriate, strength intact bilaterally 5/5, sensation intact and equal all extremities and dermatomes, no pronator drift Chest: equal rise and fall of the chest, no accessory muscle use, no heaves or thrills, Clear to auscultation, on room air, Cardiac: Regular rate and rhythm, telemetry reviewed NSR tachycardia no ectopy, skin warm dry, cap refill <3 seconds, peripheral pulses +2 no JVD, no murmur, no edema, venous discoloration to lower legs GI: NABS x 4 quadrants, soft, nontender to palpation, no rebound, guarding or tenderness with deep or light palpation, Dark stool this morning. NO further BM or Vomitting : Spontaneously voiding, no pain, no CVA tenderness, Extremities:no peripheral edema or erythema, calfs nontender to palpation Psych: Normal mood and affect Skin: no rash or erythema Results & Data Results & Data ([facility]) Vital Signs (Past 12 Hours) Vital Signs Temp Pulse Resp BP Pulse Ox 01/16/21 18:45 112/71 96 01/16/21 18:31 132/92 98 01/16/21 18:25 94/65 L 99 01/16/21 18:15 108 H 21 79/61 L 97 01/16/21 18:03 98 01/16/21 18:00 110 H 24 95/68 L 98 01/16/21 17:54 102 H 22 111/62 97 01/16/21 17:19 99 H 19 96/49 L 99 01/16/21 17:02 97 H 25 H 73/32 L 96 04/25/21 17:00 100 H 18 65/32 L 96 01/16/21 16:45 100 H 20 89/51 L 95 01/16/21 16:38 20 01/16/21 16:31 99 H 21 72/51 L 96 01/16/21 16:29 95 H 19 63/46 L 97 01/16/21 16:11 36.7 C 107 H 20 125/78 98 Laboratory Results Abnormal lab results 01/16/21 01/16/21 01/16/21 Range/Units 15:29 15:29 15:29 WBC 12.10 H (4.8-10.8) K/uL RBC 3.87 L (4.7-6.1) M/uL Hgb 10.9 L (14.0-18.0) g/dL Hct 32.9 L (42-52) % RDW Coeff of Edison 14.7 H (11.5-14.5) % Neut # (Auto) 9.45 H (1.4-6.5) K/uL PT 26.4 H (9.0-12.0) Seconds INR 2.8 H (0.9-1.1) APTT 37.6 H (21.0-31.0) Seconds BUN 63 H (7-18) mg/dl BUN/Creatinine Ratio 48.8 H (10-20) Glucose 117 H (70-99) mg/dl Lactate (0.4-2.0) mmol/L AST 13 L (15-37) U/L Albumin 2.9 L (3.4-5.0) gm/dl Albumin/Globulin Ratio 0.8 L (0.9-2) Ur Specific [place] (1.000-1.030) Urine Ketones (Negative) 01/16/21 01/16/21 01/16/21 Range/Units 16:37 18:49 19:38 WBC (4.8-10.8) K/uL RBC (4.7-6.1) M/uL Hgb (14.0-18.0) g/dL Hct (42-52) % RDW Coeff of Edison (11.5-14.5) % Neut # (Auto) (1.4-6.5) K/uL PT (9.0-12.0) Seconds INR (0.9-1.1) APTT (21.0-31.0) Seconds BUN (7-18) mg/dl BUN/Creatinine Ratio (10-20) Glucose (70-99) mg/dl Lactate 3.2 H* 2.4 H* (0.4-2.0) mmol/L AST (15-37) U/L Albumin (3.4-5.0) gm/dl Albumin/Globulin Ratio (0.9-2) Ur Specific [place] 1.031 H (1.000-1.030) Urine Ketones Trace H (Negative) Diagnostic Findings CT OF THE ABDOMEN AND PELVIS WITH CONTRAST CLINICAL HISTORY: Abdominal pain. Recent endoscopy. COMPARISON STUDY: None. TECHNIQUE: Following IV administration of 93 mL of Optiray, axial images of the abdomen and pelvis were obtained from the lung bases to the proximal femurs. Images were reviewed in the axial, sagittal, and coronal planes. IV contrast was administered without complication. Automated exposure control was utilized for the study. A dose lowering technique was utilized adhering to the principles of ALARA. CT DOSE: 2172.35 mGy.cm FINDINGS: Lung bases are unremarkable. No pneumatosis, free air or portal venous gas is present. Extensive mixed attenuation material within the stomach is noted with layering hyperdense material. The stomach is mildly distended. Hepatic steatosis is noted. No hepatic lesions are present. There is no biliary or pancreatic ductal dilatation. The spleen and adrenal glands as well as the left kidney are normal. Note is made of a 5.6 cm water attenuation right renal lesion consistent with a cyst. There is no hydronephrosis. The caliber and wall thickness of small and large bowel are normal. Note is made of colonic diverticulosis without evidence for acute diverticulitis. The appendix is normal. No acute fracture or suspicious lesion is identified within the visualized skeletal structures. IMPRESSION: 1. Extensive mixed attenuation material within the stomach. This probably reflects ingested contents however hemorrhage could appear similar. Correlation with clinical evidence for upper GI bleed is recommended. 2. No pneumoperitoneum. 3. Colonic diverticulosis without evidence for acute diverticulitis. 4. Hepatic steatosis. CT OF THE HEAD WITHOUT CONTRAST CLINICAL HISTORY: syncope on coumadin ro ich COMPARISON STUDY: Head CT May 27, 2020. CT DOSE: 884.08 mGy.cm TECHNIQUE: Helical axial images of the head were obtained without IV contrast. Automated exposure control was utilized for the study. A dose lowering technique was utilized adhering to the principles of ALARA. FINDINGS: No acute intracranial hemorrhage, midline shift or mass effect is present. The ventricular system is unremarkable. The basal cisterns are patent. No extra-axial collections are present. There are no findings to suggest acute dural sinus thrombosis or acute territorial infarct. No significant calvarial abnormalities are present. Visualized portions of the sinuses and mastoid air cells are clear. IMPRESSION: No acute intracranial findings. Medications Administered Sodium Chloride (Nss 1000ml) 1,000 mls @ 125 mls/hr IV .Q8H HONORIO Stop: 02/15/21 16:44 Last Admin: 01/16/21 18:15 Dose: 125 mls/hr Documented by: [id number] Pantoprazole Sodium 40 mg/ (Dextrose) 100 mls @ 20 mls/hr IV Q5H HONORIO Stop: 02/15/21 19:49 Last Admin: 01/16/21 20:21 Dose: 8 mg/hr, 20 mls/hr Documented by: [id number] Discontinued Medications Sodium Chloride (Nss 1000ml) 1,000 mls @ 999 mls/hr IV .Q1H1M ONE Stop: 01/16/21 17:08 Last Infusion: 01/16/21 19:39 Dose: 0 mls/hr Documented by: [id number] Admin: 01/16/21 16:26 Dose: 999 mls/hr Documented by: [id number] Sodium Chloride (Nss 1000ml) 1,000 mls @ 999 mls/hr IV .Q1H1M ONE Stop: 01/16/21 18:20 Last Infusion: 01/16/21 19:39 Dose: 0 mls/hr Documented by: [id number] Admin: 01/16/21 17:22 Dose: 999 mls/hr Documented by: [id number] Pantoprazole Sodium 80 mg/ (Dextrose) 120 mls @ 400 mls/hr IV NOW ONE Stop: 01/16/21 19:53 Last Admin: 01/16/21 20:03 Dose: 400 mls/hr Documented by: [id number] Ioversol (Optiray 300 100ml) 93 ml IV ONCE ONE Stop: 01/16/21 17:43 Last Admin: 01/16/21 17:42 Dose: 93 ml Documented by: [id number] Ondansetron HCl (Ondansetron Inj 2 Mg/Ml 2 Ml Vial) 4 mg IV NOW STA Stop: 01/16/21 16:47 Last Admin: 01/16/21 17:10 Dose: 4 mg Documented by: [id number] Ondansetron HCl (Ondansetron Inj 2 Mg/Ml 2 Ml Vial) Confirm Administered Dose 4 mg .ROUTE .STK-MED ONE Stop: 01/16/21 16:48 Last Admin: 01/16/21 17:22 Dose: Not Given Documented by: [id number] Home Medications cetirizine 10 mg PO QAM PRN 02/04/20 [History Confirmed 01/16/21] lisinopril-hydrochlorothiazide 1 tab PO BID 02/04/20 [History Confirmed 01/16/21] spironolactone 25 mg PO QAM 02/04/20 [History Confirmed 01/16/21] metronidazole 0.75 % topical gel 1 applic TOPICAL PRN g 09/16/20 [History Confirmed 01/16/21] sildenafil (pulm.hypertension) 20 mg tablet 20 mg PO PRN tab 09/16/20 [History Confirmed 01/16/21] acetaminophen 500 mg capsule 1,000 mg PO BID PRN cap 10/29/20 [History Confirmed 01/16/21] metoprolol succinate 25 mg tablet,extended release 24 hr 25 mg PO QPM tab 10/29/20 [History Confirmed 01/16/21] furosemide 20 mg tablet 20 mg PO DAILY PRN 12/03/20 [History Confirmed 01/16/21] cholecalciferol (vitamin D3) 25 mcg (1,000 unit) capsule 25 mcg PO DAILY 01/10/21 [History Confirmed 01/16/21] diclofenac sodium 1 % topical gel 1 ea TOPICAL QID PRN 01/10/21 [History Confirmed 01/16/21] warfarin 10 mg tablet 5 - 10 mg PO UD tab 01/10/21 [History Confirmed 01/16/21] Active Medications Sodium Chloride (Nss 1000ml) 1,000 mls @ 125 mls/hr IV .Q8H HONORIO Stop: 02/15/21 16:44 Last Admin: 01/16/21 18:15 Dose: 125 mls/hr Documented by: Pantoprazole Sodium 40 mg/ (Dextrose) 100 mls @ 20 mls/hr IV Q5H HONORIO Stop: 02/15/21 19:49 Last Admin: 01/16/21 20:21 Dose: 8 mg/hr, 20 mls/hr Documented by: Phytonadione 5 mg/ Sodium (Chloride) 50.5 mls @ 101 mls/hr IV ONE ONE Stop: 01/16/21 20:28 ECG Additional Comments: Normal sinus rhythm Low voltage QRS Left anterior fascicular block Cannot rule out Anterior infarct (cited on or before 16-JAN-2021) Abnormal ECG When compared with ECG of 16-JAN-2021 16:11, (unconfirmed) No significant change was found. Code Status & VTE Plan Code Status CODE Status: FULL VTE: SCDS- chemoprophylaxis until UGI evaluated. VTE Prophylaxis Plan VTE Prophylaxis will be ordered: Yes Supervising Physician Co-Signing Physician Notes I supervised RJ Osorio on this admission. I examined the patient today independently of him. I discussed the plan of care with him with the plan being as written in his note except for any following changes/exceptions: None. 65yo M w/ hx of NSAID use for MSK pain who presents with syncope x 2 at home, hypotension, and indications of upper GI bleed. He is on warfarin at home for afib though has been in sinus rhythm for some time (2 years?). He had syncope x 2. CT a/p has evidence of hemorrhage, and his hgb is considerably lower than earlier this month. Will treat as upper GI bleed as per Urban Everett's note. I did consent him for blood in the presence of his and the ED nurse. PG Care Time/CCT Total # of Minutes Spent Total Time Spent with Patient: Total time spent is greater than 50% in coordination of care (as documented) at patient's floor/unit and/or counseling patient: Coding Level of Care Code 51027 Initial Inpt Care Lvl 3 Diagnoses UGI bleed K92.2 Duodenitis K29.80 HTN (hypertension) I10 Hypertension type: essential hypertension Morbid obesity E66.01 Venous stasis ulcer I83.002; L97.208 Laterality: unspecified laterality Non-pressure ulcer stage: with other severity Varicose vein presence: with varicose veins Venous stasis ulcer site: calf Afib I48.0 Atrial fibrillation type: paroxysmal Diastolic CHF I50.32 Heart failure chronicity: chronic DIANDRA treated with BiPAP G47.33 CKD (chronic kidney disease), stage III N18.30 (1) Diastolic CHF Heart failure chronicity: chronic Qualified Code(s): I50.32 - Chronic diastolic (congestive) heart failure (2) Afib Atrial fibrillation type: paroxysmal Qualified Code(s): I48.0 - Paroxysmal atrial fibrillation (3) Venous stasis ulcer Laterality: unspecified laterality Non-pressure ulcer stage: with other severity Varicose vein presence: with varicose veins Venous stasis ulcer site: calf Qualified Code(s): I83.002 - Varicose veins of unspecified lower extremity with ulcer of calf; L97.208 - Non-pressure chronic ulcer of unspecified calf with other specified severity (4) HTN (hypertension) Hypertension type: essential hypertension Qualified Code(s): I10 - Essential (primary) hypertension
[2021-01-16] MEDS ORDERED: PHYTONADIONE 5 MG in SODIUM CHLORIDE 0.9% 50 ML IV ONE (19:59)
[2021-01-16] MEDS: PANTOprazole 40 MG in DEXTROSE 5% 100 ML IV SCH (20:21)
[2021-01-16] MEDS ORDERED: ACETAMINOPHEN 325 MG TAB PO PRN (21:14)
[2021-01-16] MEDS ORDERED: POLYETHYLENE (MIRALAX) 17 GM PACK PO PRN (21:14)
[2021-01-16] MEDS ORDERED: ONDANSETRON INJ 2 MG/ML 2 ML VIAL IV PRN (21:14)
[2021-01-16] MEDS ORDERED: CETIRIZINE HCL 10 MG TABLET PO PRN (21:14)
[2021-01-16 22:44] LABS: Basophils # (auto) 0.02 K/uL (0-0.2); Basophils % (auto) 0.2 %; Hematocrit (blood only) 27.9 % (42-52); Hemoglobin 9.3 g/dL (14.0-18.0); Immature Granulocytes # (auto) 0.02 K/uL (0.00-0.02); Immature Granulocytes % (auto) 0.2 %; Lymphocytes # (auto) 1.05 K/uL (1.2-3.4); Lymphocytes % (auto) 8.5 %; Mean Corpuscular Hemoglobin 28.3 pg (25-34); Mean Corpuscular Hgb Conc 33.3 g/dL (32-36); Mean Corpuscular Volume 84.8 fL (80-100); Mean Platelet Volume 9.5 fL (7.4-10.4); Monocytes # (auto) 0.62 K/uL (0.11-0.59); Neutrophils # (auto) 10.69 K/uL (1.4-6.5); Neutrophils % (auto) 86.1 %; Platelet Count 325 K/uL (130-400); RDW Coefficient of Variation 14.7 % (11.5-14.5); RDW Standard Deviation 46.2 fL (36.4-46.3); Red Blood Count 3.29 M/uL (4.7-6.1)
[2021-01-16] MEDS ORDERED: SODIUM CHLORIDE 0.9% 250 ML IV PRN (22:54)
[2021-01-17] MEDS: PANTOprazole 40 MG in DEXTROSE 5% 100 ML IV SCH ×3 (00:32→12:37)
[2021-01-17 08:25] LABS: Basophils # (auto) 0.04 K/uL (0-0.2); Basophils % (auto) 0.3 %; Eosinophils # (auto) 0.04 K/uL (0-0.5); Eosinophils % (auto) 0.3 %; Hemoglobin 10.6 g/dL (14.0-18.0); Immature Granulocytes # (auto) 0.07 K/uL (0.00-0.02); Immature Granulocytes % (auto) 0.5 %; Lymphocytes # (auto) 3.04 K/uL (1.2-3.4); Lymphocytes % (auto) 19.8 %; Mean Corpuscular Hgb Conc 34.2 g/dL (32-36); Mean Corpuscular Volume 84.7 fL (80-100); Mean Platelet Volume 9.5 fL (7.4-10.4); Monocytes # (auto) 1.51 K/uL (0.11-0.59); Monocytes % (auto) 9.8 %; Neutrophils # (auto) 10.64 K/uL (1.4-6.5); Neutrophils % (auto) 69.3 %; Platelet Count 353 K/uL (130-400); RDW Coefficient of Variation 14.7 % (11.5-14.5); RDW Standard Deviation 45.6 fL (36.4-46.3); Red Blood Count 3.66 M/uL (4.7-6.1); White Blood Count 15.34 K/uL (4.8-10.8)
--- NOTE | 2021-01-17 08:49 | Gastrointestinal Consultation ---
Date of Consultation January 17, 2021 Assessment & Plan (1) UGI bleed: Patient presented to the ED with c/o dizziness with concerns for UGI bleeding. Patient is on chronic anticoagulation with Coumadin d/t history of atrial fibrillation. Received vitamin K yesterday with INR 2.8. Patient had an EGD 01/13/2021 at [facility] in anticipation of bariatric surgery with 2 biopsies obtained. Patient received 2 units of PRBC overnight. Hgb 9.3/Hct 27.9 this morning. Anticipate EGD today. Maintain NPO. Continue Protonix drip. Monitor H&H. Please refer to supervising physician addendum for further recommendations. Supervising Physician Co-Signing Physician Notes I have seen and examined the patient. I agree with note above by RJ Gonzalez except as noted below. HPI Pt with melena and anemia. PE Abdomen pos bs, soft, no guarding nor rebound A/P melena anemia EGD today. Procedure and risks explained to patient which include but not limited to medication reaction, bleeding, perforation, aspiration, and missed lesions. History of Present Illness Attending Physician: Deep Villatoro MD History of Present Illness The patient is a pleasant 65-year-old male with past medical history to include history of atrial fibrillation on Coumadin, obstructive sleep apnea on BiPAP, hypertension, PVD with right GSV ablation, morbid obesity, HFpEF with mild LVH grade I diastolic dysfunction, chronic left hip pain who presented to the emergency department 01/16/2021 due to dizziness. He was subsequently admitted for concerns of upper GI bleed. GI consult was placed for further evaluation of upper GI bleed 01/13/2021: He is being evaluated for bariatric surgery. He went to [facility] last week to get an EGD in which he got 2 biopsies. His report was positive for active duodenitis with reactive epithelial cell and gastric metaplasia consistent with peptic duodenitis, GE junction with squamous reactive epithelial changes and severely inflamed mucosa with goblet cells, small hiatal hernia. 12/08/2011: Colonoscopy reportedly normal On exam/interview today, the patient reports that he is overall feeling well this morning. He reports that , 01/13/2021 he did have an upper endoscopy at [facility]. EGD was performed anticipating bariatric surgery. He reports that he has had some persistent pain in his bilateral upper quadrants after eating. He states this has been worse since the endoscopy. He states he woke up yesterday morning feeling dizzy and lightheaded. He denies any chest pain or shortness of breath. This morning he denies any abdominal pain, nausea, vomiting. Denies any hematochezia or hematemesis. He does report that he had black stool noted this morning and yesterday morning. He is currently n.p.o. The patient is a lifetime non-smoker. He denies any alcohol intake. He denies use of recreational drugs including marijuana. 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 He is and has 2 adult sons and several grandchildren. Allergies Allergy/AdvReac Type Severity Reaction Status Date / Time gabapentin AdvReac Intermediate see Verified 01/16/21 18:54 comment: shortness of breath,palpitations Home Medications Medication Instructions Recorded Confirmed Type cetirizine 10 mg PO QAM PRN 02/04/20 01/16/21 History lisinopril-hydrochlorothiazide 1 tab PO BID 02/04/20 01/16/21 History spironolactone 25 mg PO QAM 02/04/20 01/16/21 History metronidazole 0.75 % topical gel 1 applic TOPICAL PRN g 09/16/20 01/16/21 History sildenafil (pulm.hypertension) 20 20 mg PO PRN tab 09/16/20 01/16/21 History mg tablet acetaminophen 500 mg capsule 1,000 mg PO BID PRN cap 10/29/20 01/16/21 History metoprolol succinate 25 mg 25 mg PO QPM tab 10/29/20 01/16/21 History tablet,extended release 24 hr furosemide 20 mg tablet 20 mg PO DAILY PRN 12/03/20 01/16/21 History cholecalciferol (vitamin D3) 25 25 mcg PO DAILY 01/10/21 01/16/21 History mcg (1,000 unit) capsule diclofenac sodium 1 % topical gel 1 ea TOPICAL QID PRN 01/10/21 01/16/21 History warfarin 10 mg tablet 5 - 10 mg PO UD tab 01/10/21 01/16/21 History Patient History Medical History Atrial fibrillation hx, converted to SR on own, asymptomatic since 12/10 Chronic venous insufficiency Has followed with vascular, had attempted L GSV ablation, complicated by knotted guidewire requiring surgical de-tanglement Hypertension Left ventricular dysfunction Per most recent cardio note, EF is in the range of 45%, "possibly nonischemic" Lumbar foraminal stenosis Morbid obesity On anticoagulant therapy Sleep apnea BI-PAP Surgical History History of colonoscopy History of vascular surgery attempted L GSV ablation, complicated by knotted guidewire requiring surgical de-tanglement Social History Smoking Status: Never smoker Second Hand Exposure: No; Hx Alcohol Use: No Hx Substance Use: No Preferred Language: Kinyarwanda Communication Ability: Effective Sales Promotion Manager Required: No Beliefs That Will Affect Care: None marital status: Current Living Situation: Spouse Other Information That Helps Us Care for You: No Feels Safe at Home: Yes Safety Concerns: Feels Safe At This Time Assistive Devices: BiPap and Glasses Review of Systems Review of Systems: All systems reviewed & are unremarkable except as noted in HPI & below Physical Exam Constitutional: WD/WN, vitals as above ENMT: Ears: no hearing impairment Neck: normal visual inspection and trachea midline Respiratory: normal respiratory effort; no respiratory distress and no labored breathing Cardiovascular: Rate/Rhythm: regular rate and regular rhythm Gastrointestinal (Abdomen): Inspection/Auscultation: abdomen normal to inspection and normal bowel sounds Percussion/Palpation: abdomen soft; abdomen nontender, no guarding and abdomen not rigid Musculoskeletal: Extremities: extremities normal to inspection Neurologic: PERRL, EOMI, accommodation nl, no face palsy, no dysarthria Psychiatric: A+Ox3, euthymic affect Results & Data ([facility]) Vital Signs (Past 12 Hours) Vital Signs Temp Pulse Pulse Resp BP BP BP 01/17/21 07:53 36.9 C 107 H 19 146/81 H 01/17/21 07:02 37.6 C H 106 H 18 146/86 H 01/17/21 06:00 37.1 C 105 H 18 119/75 01/17/21 05:00 37.2 C 111 H 20 137/84 01/17/21 04:30 37.5 C 113 H 20 107/78 01/17/21 04:15 37.4 C 112 H 18 126/83 01/17/21 04:00 37.4 C 113 H 20 119/80 01/17/21 03:16 37.2 C 115 H 18 115/59 L 01/17/21 02:47 88 20 01/17/21 02:15 37.2 C 121 H 20 113/74 01/17/21 01:15 37.4 C 118 H 20 124/74 01/17/21 00:45 37.6 C H 124 H 18 128/87 01/17/21 00:30 36.9 C 120 H 20 126/81 01/17/21 00:14 37.4 C 121 H 20 100/56 L 01/17/21 00:09 36.6 C 98 H 20 115/72 01/17/21 00:01 118 H 01/16/21 22:15 119 H 16 01/16/21 21:15 37.3 C 128 H 22 137/80 01/16/21 20:51 36.9 C 104 H 12 115/72 Pulse Ox 01/17/21 07:53 96 01/17/21 07:02 107 H 01/17/21 06:00 96 01/17/21 05:00 94 01/17/21 04:30 95 01/17/21 04:15 96 01/17/21 04:00 97 01/17/21 03:16 95 01/17/21 02:47 96 01/17/21 02:15 95 01/17/21 01:15 95 01/17/21 00:45 95 01/17/21 00:30 95 01/17/21 00:14 97 01/17/21 00:09 98 01/17/21 00:01 01/16/21 22:15 95 01/16/21 21:15 96 01/16/21 20:51 97 Laboratory Results - last 24 hr 01/16/21 01/16/21 01/16/21 15:29 15:29 15:29 WBC 12.10 H RBC 3.87 L Hgb 10.9 L Hct 32.9 L MCV 85.0 MCH 28.2 MCHC 33.1 RDW Std Deviation 45.9 RDW Coeff of Edison 14.7 H Plt Count 368 MPV 9.9 Immature Gran % (Auto) 0.2 Neut % (Auto) 78.1 Lymph % (Auto) 16.8 Mcdonald % (Auto) 4.1 Eos % (Auto) 0.4 Baso % (Auto) 0.4 Neut # (Auto) 9.45 H Lymph # (Auto) 2.03 Mcdonald # (Auto) 0.50 Eos # (Auto) 0.05 Baso # (Auto) 0.05 Immature Gran # (Auto) 0.02 PT 26.4 H INR 2.8 H APTT 37.6 H PTT Ratio 1.4 Sodium 139 Potassium 4.9 Chloride 105 Carbon Dioxide 23 Anion Gap 10.0 BUN 63 H Creatinine 1.28 Est Cr Clr Drug Dosing 83.9 Est GFR ( Amer) 68.6 Est GFR (Non-Af Amer) 59.2 BUN/Creatinine Ratio 48.8 H Glucose 117 H Estimat Average Glucose Hemoglobin A1c Lactate Calcium 9.0 Magnesium 2.1 Total Bilirubin 0.6 AST 13 L ALT 18 Alkaline Phosphatase 58 Troponin I < 0.015 Total Protein 6.6 Albumin 2.9 L Globulin 3.7 Albumin/Globulin Ratio 0.8 L Triglycerides Cholesterol LDL Cholesterol, Calc VLDL Cholesterol, Calc HDL Cholesterol Cholesterol/HDL Ratio Procalcitonin Urine Color Urine Appearance Urine pH Ur Specific [place] Urine Protein Urine Glucose (UA) Urine Ketones Urine Blood Urine Nitrite Urine Bilirubin Urine Urobilinogen Ur Leukocyte Esterase COVID-19 Eval Order SARS-CoV-2 (PCR) Hepatitis C Ab Screen Influenza Type A (PCR) Influenza Type B (PCR) RSV (RT-PCR) Blood Type Blood Type Recheck Antibody Screen Crossmatch 01/16/21 01/16/21 01/16/21 15:29 15:29 16:28 WBC RBC Hgb Hct MCV MCH MCHC RDW Std Deviation RDW Coeff of [place] Plt Count MPV Immature Gran % (Auto) Neut % (Auto) Lymph % (Auto) Mcdonald % (Auto) Eos % (Auto) Baso % (Auto) Neut # (Auto) Lymph # (Auto) Mcdonald # (Auto) Eos # (Auto) Baso # (Auto) Immature Gran # (Auto) PT INR APTT PTT Ratio Sodium Potassium Chloride Carbon Dioxide Anion Gap BUN Creatinine Est Cr Clr Drug Dosing Est GFR ( Amer) Est GFR (Non-Af Amer) BUN/Creatinine Ratio Glucose Estimat Average Glucose Hemoglobin A1c Lactate Calcium Magnesium Total Bilirubin AST ALT Alkaline Phosphatase Troponin I Total Protein Albumin Globulin Albumin/Globulin Ratio Triglycerides Cholesterol LDL Cholesterol, Calc VLDL Cholesterol, Calc HDL Cholesterol Cholesterol/HDL Ratio Procalcitonin < 0.05 Urine Color Urine Appearance Urine pH Ur Specific [place] Urine Protein Urine Glucose (UA) Urine Ketones Urine Blood Urine Nitrite Urine Bilirubin Urine Urobilinogen Ur Leukocyte Esterase COVID-19 Eval Order CovFluRsv at [facility] SARS-CoV-2 (PCR) Hepatitis C Ab Screen Neg Influenza Type A (PCR) Influenza Type B (PCR) RSV (RT-PCR) Blood Type Blood Type Recheck Antibody Screen Crossmatch 01/16/21 01/16/21 01/16/21 16:28 16:37 18:49 WBC RBC Hgb Hct MCV MCH MCHC RDW Std Deviation RDW Coeff of [place] Plt Count MPV Immature Gran % (Auto) Neut % (Auto) Lymph % (Auto) Mcdonald % (Auto) Eos % (Auto) Baso % (Auto) Neut # (Auto) Lymph # (Auto) Mcdonald # (Auto) Eos # (Auto) Baso # (Auto) Immature Gran # (Auto) PT INR APTT PTT Ratio Sodium Potassium Chloride Carbon Dioxide Anion Gap BUN Creatinine Est Cr Clr Drug Dosing Est GFR ( Amer) Est GFR (Non-Af Amer) BUN/Creatinine Ratio Glucose Estimat Average Glucose Hemoglobin A1c Lactate 3.2 H* Calcium Magnesium Total Bilirubin AST ALT Alkaline Phosphatase Troponin I Total Protein Albumin Globulin Albumin/Globulin Ratio Triglycerides Cholesterol LDL Cholesterol, Calc VLDL Cholesterol, Calc HDL Cholesterol Cholesterol/HDL Ratio Procalcitonin Urine Color Yellow Urine Appearance Clear Urine pH 5.0 Ur Specific [place] 1.031 H Urine Protein Negative Urine Glucose (UA) Negative Urine Ketones Trace H Urine Blood Negative Urine Nitrite Negative Urine Bilirubin Negative Urine Urobilinogen Negative Ur Leukocyte Esterase Negative COVID-19 Eval Order SARS-CoV-2 (PCR) NEGATIVE Hepatitis C Ab Screen Influenza Type A (PCR) Negative Influenza Type B (PCR) Negative RSV (RT-PCR) Negative Blood Type Blood Type Recheck Antibody Screen Crossmatch 01/16/21 01/16/21 01/16/21 19:38 19:38 22:29 WBC 12.40 H RBC 3.29 L Hgb 9.3 L Hct 27.9 L MCV 84.8 MCH 28.3 MCHC 33.3 RDW Std Deviation 46.2 RDW Coeff of Edison 14.7 H Plt Count 325 MPV 9.5 Immature Gran % (Auto) 0.2 Neut % (Auto) 86.1 Lymph % (Auto) 8.5 Mcdonald % (Auto) 5.0 Eos % (Auto) 0.0 Baso % (Auto) 0.2 Neut # (Auto) 10.69 H Lymph # (Auto) 1.05 L Mcdonald # (Auto) 0.62 H Eos # (Auto) 0.00 Baso # (Auto) 0.02 Immature Gran # (Auto) 0.02 PT INR APTT PTT Ratio Sodium Potassium Chloride Carbon Dioxide Anion Gap BUN Creatinine Est Cr Clr Drug Dosing Est GFR ( Amer) Est GFR (Non-Af Amer) BUN/Creatinine Ratio Glucose Estimat Average Glucose Hemoglobin A1c Lactate 2.4 H* Calcium Magnesium Total Bilirubin AST ALT Alkaline Phosphatase Troponin I Total Protein Albumin Globulin Albumin/Globulin Ratio Triglycerides Cholesterol LDL Cholesterol, Calc VLDL Cholesterol, Calc HDL Cholesterol Cholesterol/HDL Ratio Procalcitonin Urine Color Urine Appearance Urine pH Ur Specific [place] Urine Protein Urine Glucose (UA) Urine Ketones Urine Blood Urine Nitrite Urine Bilirubin Urine Urobilinogen Ur Leukocyte Esterase COVID-19 Eval Order SARS-CoV-2 (PCR) Hepatitis C Ab Screen Influenza Type A (PCR) Influenza Type B (PCR) RSV (RT-PCR) Blood Type O Positive Blood Type Recheck Antibody Screen NEGATIVE Crossmatch See Detail 01/16/21 01/16/21 01/17/21 22:29 22:29 08:11 WBC 15.34 H RBC 3.66 L Hgb 10.6 L Hct 31.0 L MCV 84.7 MCH 29.0 MCHC 34.2 RDW Std Deviation 45.6 RDW Coeff of Edison 14.7 H Plt Count 353 MPV 9.5 Immature Gran % (Auto) 0.5 Neut % (Auto) 69.3 Lymph % (Auto) 19.8 Mcdonald % (Auto) 9.8 Eos % (Auto) 0.3 Baso % (Auto) 0.3 Neut # (Auto) 10.64 H Lymph # (Auto) 3.04 Mcdonald # (Auto) 1.51 H Eos # (Auto) 0.04 Baso # (Auto) 0.04 Immature Gran # (Auto) 0.07 H PT INR APTT PTT Ratio Sodium Potassium Chloride Carbon Dioxide Anion Gap BUN Creatinine Est Cr Clr Drug Dosing Est GFR ( Amer) Est GFR (Non-Af Amer) BUN/Creatinine Ratio Glucose Estimat Average Glucose Hemoglobin A1c Lactate Calcium Magnesium Total Bilirubin AST ALT Alkaline Phosphatase Troponin I < 0.015 Total Protein Albumin Globulin Albumin/Globulin Ratio Triglycerides Cholesterol LDL Cholesterol, Calc VLDL Cholesterol, Calc HDL Cholesterol Cholesterol/HDL Ratio Procalcitonin Urine Color Urine Appearance Urine pH Ur Specific [place] Urine Protein Urine Glucose (UA) Urine Ketones Urine Blood Urine Nitrite Urine Bilirubin Urine Urobilinogen Ur Leukocyte Esterase COVID-19 Eval Order SARS-CoV-2 (PCR) Hepatitis C Ab Screen Influenza Type A (PCR) Influenza Type B (PCR) RSV (RT-PCR) Blood Type Blood Type Recheck O Positive Antibody Screen Crossmatch 01/17/21 01/17/21 08:11 08:11 WBC RBC Hgb Hct MCV MCH MCHC RDW Std Deviation RDW Coeff of [place] Plt Count MPV Immature Gran % (Auto) Neut % (Auto) Lymph % (Auto) Mcdonald % (Auto) Eos % (Auto) Baso % (Auto) Neut # (Auto) Lymph # (Auto) Mcdonald # (Auto) Eos # (Auto) Baso # (Auto) Immature Gran # (Auto) PT INR APTT PTT Ratio Sodium Pending Potassium Pending Chloride Pending Carbon Dioxide Pending Anion Gap Pending BUN Pending Creatinine Pending Est Cr Clr Drug Dosing Pending Est GFR ( Amer) Pending Est GFR (Non-Af Amer) Pending BUN/Creatinine Ratio Pending Glucose Pending Estimat Average Glucose Pending Hemoglobin A1c Pending Lactate Calcium Pending Magnesium Pending Total Bilirubin AST ALT Alkaline Phosphatase Troponin I Pending Total Protein Albumin Globulin Albumin/Globulin Ratio Triglycerides Pending Cholesterol Pending LDL Cholesterol, Calc Pending VLDL Cholesterol, Calc Pending HDL Cholesterol Pending Cholesterol/HDL Ratio Pending Procalcitonin Urine Color Urine Appearance Urine pH Ur Specific [place] Urine Protein Urine Glucose (UA) Urine Ketones Urine Blood Urine Nitrite Urine Bilirubin Urine Urobilinogen Ur Leukocyte Esterase COVID-19 Eval Order SARS-CoV-2 (PCR) Hepatitis C Ab Screen Influenza Type A (PCR) Influenza Type B (PCR) RSV (RT-PCR) Blood Type Blood Type Recheck Antibody Screen Crossmatch 01/16/2021 CT of the abdomen and pelvis with contrast was obtained due to abdominal pain and recent endoscopy which demonstrated 1. Extensive mixed attenuation material within the stomach. This probably reflects ingested contents however hemorrhage could appear similar. Correlation with clinical evidence for upper GI bleed is recommended. 2. No pneumoperitoneum. 3. Colonic diverticulosis without evidence for acute diverticulitis. 4. Hepatic steatosis.
[2021-01-17 09:02] LABS: BUN Creatinine Ratio 60.2 (10-20); Calcium 8.7 mg/dl (8.5-10.1); Creatinine Clr Calc Pharmacy 91.8 ml/min; Est GFR (African American) 70.6; Est GFR (Non-African American) 60.9; Magnesium 2.1 mg/dl (1.8-2.4); Potassium 4.5 mmol/L (3.5-5.1)
[2021-01-17 09:03] LABS: Estimated Average Glucose 114 mg/dl; Hemoglobin A1C 5.6 % (4.5-5.6)
[2021-01-17 09:06] LABS: Troponin I 0.016 ng/ml (0-0.045)
--- NOTE | 2021-01-17 12:44 | Hospitalist Progress Note ---
Date of Service January 17, 2021 Assessment & Plan (1) UGI bleed: Patient presented hypotensive, syncope x2, HGB 10.9, and dark stool x1 this morning--- HGB 13.6 on [id number] - Received 2 units of PRBCs on 01/16 for continued downtrend in hgb - Protonix bolus and drip - NPO for EGD today. (2) Duodenitis: As above - Continue on PPI as outpatient (3) HTN (hypertension): BP today was 140/80. - Hold all antihypertensives - Restart when hemodynamically stable (4) Venous stasis ulcer: Chronic. No indication of infection. - No acute needs (5) Afib: Holding warfarin at present. - Restart metoprolol when able (6) Diastolic CHF: Preserved EF. - Hold diuretics until hemodynamically stable - Presently euvolemic on exam, but given the fluids and blood, will likely restart diuretic today after EGD. (7) DIANDRA treated with BiPAP: - Continue BIPAP 12/06 or titrate to patient needs for adequate VT and SPO2. (8) CKD (chronic kidney disease), stage III: He has a baseline [facility] of 1.31 and BUN 22 on April. - BUN elevated with GI bleed - Follow [facility] -> Remains at baseline today. (9) DVT prophylaxis: SCDs - Holding heparin for UGIB Admission and Anticipated Discharge Date Admission Date: January 16, 2021 Subjective Doing well today. Less dizziness on standing. More melenic stool overnight and this morning which he was warned was probably to be expected. Reports no fevers/chills, chest pain, shortness of breath, abdominal pain, nausea, or vomiting. Physical Exam Constitutional: WD/WN, vitals as above + obese Eyes: EOM intact bilaterally; no conjunctival abnormality ENMT: external ear and nose normal, oropharynx normal Neck: trachea midline, no thyromegaly normal visual inspection Respiratory: normal respiratory effort, lungs clear to auscultation no respiratory distress Cardiovascular: Rate/Rhythm: regular rhythm and + tachycardic Heart Sounds: normal S1 and normal S2 Extremities: no edema Gastrointestinal (Abdomen): Inspection/Auscultation: abdomen normal to inspection; abdomen not distended Musculoskeletal: no cyanosis or clubbing, extremities motor strength 5/5 Skin: no rashes, warm and dry Neurologic: moves all extremities and awake Psychiatric: Orientation: alert, oriented to person and cooperative Results & Data Results & Data ([facility]) Vital Signs (Past 12 Hours) Vital Signs Temp Pulse Pulse Resp BP BP Pulse Ox 01/17/21 11:04 36.7 C 104 H 18 137/83 98 01/17/21 07:53 36.9 C 107 H 19 146/81 H 96 01/17/21 07:02 37.6 C H 106 H 18 146/86 H 107 H 01/17/21 06:00 37.1 C 105 H 18 119/75 96 01/17/21 05:00 37.2 C 111 H 20 137/84 94 01/17/21 04:30 37.5 C 113 H 20 107/78 95 01/17/21 04:15 37.4 C 112 H 18 126/83 96 01/17/21 04:00 37.4 C 113 H 20 119/80 97 01/17/21 03:16 37.2 C 115 H 18 115/59 L 95 01/17/21 02:47 88 20 96 01/17/21 02:15 37.2 C 121 H 20 113/74 95 01/17/21 01:15 37.4 C 118 H 20 124/74 95 01/17/21 00:45 37.6 C H 124 H 18 128/87 95 PG Care Time/CCT Total # of Minutes Spent Total Time Spent with Patient: Total time spent is greater than 50% in coordination of care (as documented) at patient's floor/unit and/or counseling patient: Coding Level of Care Code 01877 Subseq Hosp Care Lvl 3 Diagnoses UGI bleed K92.2 Duodenitis K29.80 HTN (hypertension) I10 Hypertension type: essential hypertension Venous stasis ulcer I83.002; L97.208 Venous stasis ulcer site: calf Varicose vein presence: with varicose veins Laterality: unspecified laterality Non-pressure ulcer stage: with other severity Afib I48.0 Atrial fibrillation type: paroxysmal Diastolic CHF I50.32 Heart failure chronicity: chronic DIANDRA treated with BiPAP G47.33 CKD (chronic kidney disease), stage III N18.30 DVT prophylaxis Z29.9 (1) HTN (hypertension) Hypertension type: essential hypertension Qualified Code(s): I10 - Essential (primary) hypertension (2) Venous stasis ulcer Venous stasis ulcer site: calf Varicose vein presence: with varicose veins Laterality: unspecified laterality Non-pressure ulcer stage: with other severity Qualified Code(s): I83.002 - Varicose veins of unspecified lower extremity with ulcer of calf; L97.208 - Non-pressure chronic ulcer of unspecified calf with other specified severity (3) Afib Atrial fibrillation type: paroxysmal Qualified Code(s): I48.0 - Paroxysmal atrial fibrillation (4) Diastolic CHF Heart failure chronicity: chronic Qualified Code(s): I50.32 - Chronic diastolic (congestive) heart failure
--- NOTE | 2021-01-17 14:16 | History & Physical Report ---
Date of Service January 17, 2021 Assessment & Plan (1) Melena: Start with EGD today to look for UGI bleeding as source. Procedure and risks explained to patient which include but not limited to medication reaction, bleeding, perforation, aspiration, and missed lesions. Admission and Anticipated Discharge Date Admission Date: January 16, 2021 History of Present Illness Primary Care Provider: Black Cruz MD See GI consult from today for full details. Pt s/p EGD wtih biopsy 01/13/21 at [facility] as preop for bariatric surgery. He presents with melena and anemia. Allergies Allergy/AdvReac Type Severity Reaction Status Date / Time gabapentin AdvReac Intermediate see Verified 01/16/21 18:54 comment: shortness of breath,palpitations Home Medications Medication Instructions Recorded Confirmed Type cetirizine 10 mg PO QAM PRN 02/04/20 01/16/21 History lisinopril-hydrochlorothiazide 1 tab PO BID 02/04/20 01/16/21 History spironolactone 25 mg PO QAM 02/04/20 01/16/21 History metronidazole 0.75 % topical gel 1 applic TOPICAL PRN g 09/16/20 01/16/21 History sildenafil (pulm.hypertension) 20 20 mg PO PRN tab 09/16/20 01/16/21 History mg tablet acetaminophen 500 mg capsule 1,000 mg PO BID PRN cap 10/29/20 01/16/21 History metoprolol succinate 25 mg 25 mg PO QPM tab 10/29/20 01/16/21 History tablet,extended release 24 hr furosemide 20 mg tablet 20 mg PO DAILY PRN 12/03/20 01/16/21 History cholecalciferol (vitamin D3) 25 25 mcg PO DAILY 01/10/21 01/16/21 History mcg (1,000 unit) capsule diclofenac sodium 1 % topical gel 1 ea TOPICAL QID PRN 01/10/21 01/16/21 History warfarin 10 mg tablet 5 - 10 mg PO UD tab 01/10/21 01/16/21 History Past Med/Surg History Medical History Atrial fibrillation hx, converted to SR on own, asymptomatic since 12/10 Chronic venous insufficiency Has followed with vascular, had attempted L GSV ablation, complicated by knotted guidewire requiring surgical de-tanglement Hypertension Left ventricular dysfunction Per most recent cardio note, EF is in the range of 45%, "possibly nonischemic" Lumbar foraminal stenosis Morbid obesity On anticoagulant therapy Sleep apnea BI-PAP Surgical History History of colonoscopy History of vascular surgery attempted L GSV ablation, complicated by knotted guidewire requiring surgical de-tanglement Social History Smoking Status: Never smoker Second Hand Exposure: No; Hx Alcohol Use: No Hx Substance Use: No Preferred Language: Mohawk Communication Ability: Effective Survey Operations Director Required: No Beliefs That Will Affect Care: None marital status: Current Living Situation: Spouse Other Information That Helps Us Care for You: No Feels Safe at Home: Yes Safety Concerns: Feels Safe At This Time Assistive Devices: BiPap and Glasses Physical Exam Constitutional: WD/WN, vitals as above Respiratory: normal respiratory effort, lungs clear to auscultation Cardiovascular: without obvious murmur Gastrointestinal (Abdomen): pos bs,soft, no guarding nor rebound Results & Data ([facility]) Vital Signs (Past 12 Hours) Vital Signs Temp Pulse Pulse Resp BP BP Pulse Ox 01/17/21 11:04 36.7 C 104 H 18 137/83 98 01/17/21 07:53 36.9 C 107 H 19 146/81 H 96 01/17/21 07:02 37.6 C H 106 H 18 146/86 H 107 H 01/17/21 06:00 37.1 C 105 H 18 119/75 96 01/17/21 05:00 37.2 C 111 H 20 137/84 94 01/17/21 04:30 37.5 C 113 H 20 107/78 95 01/17/21 04:15 37.4 C 112 H 18 126/83 96 01/17/21 04:00 37.4 C 113 H 20 119/80 97 01/17/21 03:16 37.2 C 115 H 18 115/59 L 95 01/17/21 02:47 88 20 96 01/17/21 02:15 37.2 C 121 H 20 113/74 95 Code Status & VTE Plan VTE Prophylaxis Plan VTE Prophylaxis will be ordered: Yes
--- NOTE | 2021-01-17 14:18 | Electrocardiogram Report ---
Test Reason : Blood Pressure : / mmHG Vent. Rate : 106 BPM Atrial Rate : 106 BPM P-R Int : 180 ms QRS Dur : 102 ms QT Int : 356 ms P-R-T Axes : 047 -56 022 degrees QTc Int : 472 ms Sinus tachycardia Low voltage QRS Left anterior fascicular block Septal infarct , age undetermined Abnormal ECG When compared with ECG of 10-JAN-2016 14:24, Vent. rate has increased BY 36 BPM Incomplete right bundle branch block is no longer Present Septal infarct is now Present Confirmed by Albert Gamble ([id number]) on 01/17/2021 2:18:46 PM Referred By: Confirmed By:Albert Gamble
--- NOTE | 2021-01-17 14:23 | Electrocardiogram Report ---
Test Reason : Blood Pressure : / mmHG Vent. Rate : 094 BPM Atrial Rate : 094 BPM P-R Int : 178 ms QRS Dur : 104 ms QT Int : 374 ms P-R-T Axes : 040 -56 037 degrees QTc Int : 467 ms Normal sinus rhythm Low voltage QRS Left anterior fascicular block Anteroseptal infarct (cited on or before 16-JAN-2021) Abnormal ECG When compared with ECG of 16-JAN-2021 16:11, (unconfirmed) No significant change was found Confirmed by Albert Gamble ([id number]) on 01/17/2021 2:22:30 PM Referred By: REFERRED SELF Confirmed By:Albert Gamble
[2021-01-17] MEDS ORDERED: PROPOFOL IV EMULSION 10 MG/ML 20 ML VIAL IV ONE (14:30)
[2021-01-17] MEDS ORDERED: LIDOCAINE HCL 2% 2 ML VIAL/AMP(20MG/ML) INFIL ONE (14:30)
--- NOTE | 2021-01-17 14:30 | Anesthesiology Consultation ---
Date of Service January 17, 2021 Assessment & Plan (1) Encounter for pre-operative examination: Chart Review Chart Review: Acceptable Risk for Surgery and Patient NOT seen in Pre Admission Testing Consults Requested none ASA ASA4 Proposed Anesthesia Anesthesia Type: MAC History Surgery Operation Date: 01/17/21 17:45 Proposed Procedures p Esophagogastroduodenoscopy Dr Poon - Rigo Poon Height/Weight Height: 6 ft Weight: 151.8 kg Allergies Allergy/AdvReac Type Severity Reaction Status Date / Time gabapentin AdvReac Intermediate see Verified 01/16/21 18:54 comment: shortness of breath,palpitations Medications Home Medications Medication Instructions Recorded Confirmed Last Taken cetirizine 10 mg PO QAM PRN 02/04/20 01/16/21 Unknown lisinopril-hydrochlorothiazide 1 tab PO BID 02/04/20 01/16/21 01/15/21 spironolactone 25 mg PO QAM 02/04/20 01/16/21 01/15/21 metronidazole 0.75 % topical gel 1 applic TOPICAL PRN g 09/16/20 01/16/21 Unknown sildenafil (pulm.hypertension) 20 20 mg PO PRN tab 09/16/20 01/16/21 Unknown mg tablet acetaminophen 500 mg capsule 1,000 mg PO BID PRN cap 10/29/20 01/16/21 01/15/21 metoprolol succinate 25 mg 25 mg PO QPM tab 10/29/20 01/16/21 01/15/21 tablet,extended release 24 hr furosemide 20 mg tablet 20 mg PO DAILY PRN 12/03/20 01/16/21 Unknown cholecalciferol (vitamin D3) 25 25 mcg PO DAILY 01/10/21 01/16/21 01/15/21 mcg (1,000 unit) capsule diclofenac sodium 1 % topical gel 1 ea TOPICAL QID PRN 01/10/21 01/16/21 Unknown warfarin 10 mg tablet 5 - 10 mg PO UD tab 01/10/21 01/16/21 01/15/21 Active Medications Generic Name Dose Route Start Last Admin Trade Name Freq PRN Reason Stop Dose Admin Pantoprazole Sodium 40 mg/ 100 mls @ 20 mls/hr 01/16/21 19:50 01/17/21 12:37 Dextrose IV 02/15/21 19:49 8 mg/hr Q5H HONORIO 20 mls/hr Administration 8 MG/HR Past Medical History Medical History Atrial fibrillation hx, converted to SR on own, asymptomatic since 12/10 Chronic venous insufficiency Has followed with vascular, had attempted L GSV ablation, complicated by knotted guidewire requiring surgical de-tanglement Hypertension Left ventricular dysfunction Per most recent cardio note, EF is in the range of 45%, "possibly nonischemic" Lumbar foraminal stenosis Morbid obesity On anticoagulant therapy Sleep apnea BI-PAP Past Surgical History Surgical History History of colonoscopy History of vascular surgery attempted L GSV ablation, complicated by knotted guidewire requiring surgical de-tanglement Social History Smoking Status: Never smoker Hx Alcohol Use: No Alcohol type: beer and wine alcohol intake frequency: a few times a month Hx Substance Use: No substance use type: does not use Physical Exam Vital Signs Last Vital Signs Temp 36.7 C 01/17/21 11:04 Pulse 104 H 01/17/21 11:04 Resp 18 01/17/21 11:04 BP 137/83 01/17/21 11:04 Pulse Ox 98 01/17/21 11:04 Lab Results Anesthesia Preop Results Results Anesthesia Widget: WBC 15.34 K/uL (4.8-10.8) H 01/17/21 Hgb 10.6 g/dL (14.0-18.0) L 01/17/21 Hct 31.0 % (42-52) L 01/17/21 Plt 353 K/uL (130-400) 01/17/21 Na 141 mmol/L (136-145) 01/17/21 K 4.5 mmol/L (3.5-5.1) 01/17/21 Cl 111 mmol/L (98-107) H 01/17/21 CO2 19 mmol/L (21-32) L 01/17/21 BUN 75 mg/dl (7-18) H 01/17/21 Creat 1.25 mg/dl (0.6-1.4) 01/17/21 Glucose Level 106 mg/dl (70-99) H 01/17/21 PT 26.4 Seconds (9.0-12.0) H 01/16/21 PTT 37.6 Seconds (21.0-31.0) H 01/16/21 INR 2.8 (0.9-1.1) H 01/16/21 HA1c 5.6 % (4.5-5.6) 01/17/21 Urine Color Yellow 01/16/21 Urine Appearance Clear (Clear) 01/16/21 Urine pH 5.0 (4.5-7.5) 01/16/21 Urine Specific [place] 1.031 (1.000-1.030) H 01/16/21 Urine Protein Negative (Negative) 01/16/21 Urine Glucose (UA) Negative (Negative) 01/16/21 Urine Ketones Trace (Negative) H 01/16/21 Urine Blood Negative (Negative) 01/16/21 Urine Nitrite Negative (Negative) 01/16/21 Urine Bilirubin Negative (Negative) 01/16/21 Urine Urobilinogen Negative (Negative) 01/16/21 Urine Leukocyte Esterase Negative (Negative) 01/16/21 COVID-19 PCR NEGATIVE (Negative) 01/16/21 Blood Type O Positive 01/16/21 Antibody Screen NEGATIVE 01/16/21 Testing Laboratory Results 01/17/21 08:11 01/17/21 08:11 PT 26.4 Seconds (9.0-12.0) H 01/16/21 15:29 INR 2.8 (0.9-1.1) H 01/16/21 15:29 APTT 37.6 Seconds (21.0-31.0) H 01/16/21 15:29 Hemoglobin A1c 5.6 % (4.5-5.6) 01/17/21 08:11 Urine Color Yellow 01/16/21 18:49 Urine Appearance Clear (Clear) 01/16/21 18:49 Urine pH 5.0 (4.5-7.5) 01/16/21 18:49 Ur Specific [place] 1.031 (1.000-1.030) H 01/16/21 18:49 Urine Protein Negative (Negative) 01/16/21 18:49 Urine Glucose (UA) Negative (Negative) 01/16/21 18:49 Urine Ketones Trace (Negative) H 01/16/21 18:49 Urine Nitrite Negative (Negative) 01/16/21 18:49 Ur Leukocyte Esterase Negative (Negative) 01/16/21 18:49 Blood Type O Positive 01/16/21 19:38 Antibody Screen NEGATIVE 01/16/21 19:38 01/17/21 11:27 POC Glucose 105 H
--- NOTE | 2021-01-17 15:00 | Post Operative Brief Note ---
Immediate Post Op Note v1 Date of Surgery January 17, 2021 Pre & Post Diagnosis Operation Date: 01/17/21 17:45 Pre-Op Diagnosis: SYNCOPE,DIZZINESS Post-Op Diagnosis: Gastric Ulcers Errosive Duodenitis Hiatal Hernia Irregular Z-Line I identified the patient and participated in the time-out.: Yes Procedure Operation Date: 01/17/21 17:45 Actual Procedures p Esophagogastroduodenoscopy - Rigo Poon Surgeon Rigo Poon Labor Contract Analyst see full report Estimated Blood Loss 0 Findings See Below EGD irregular z line at 40 cm with stigmata of bleed consistent with previous biopsy, antral ulcers times 3 largest one cm one with flat brown spot, duodenal erosion 1 cm. No fresh or old blood noted. Clear liquid diet. Protonix 40 mg daily. Hold coumadin.
--- NOTE | 2021-01-17 15:09 | GI REPORT ---
Patient Name: Rayshawn Garzon Procedure Date: 01/17/2021 2:33 PM Date of : 1955 Admit Type: Inpatient Age: 65 Gender: Male Attending MD: Riog Poon MD Procedure: Upper GI endoscopy Providers: Rigo Poon MD Referring MD: Deep Villatoro Md Indications: Acute post hemorrhagic anemia, Melena Medicines: See the Anesthesia note for documentation of the administered medications Complications: No immediate complications. Estimated blood loss: None. Estimated Blood Loss: Estimated blood loss: none. Procedure: Pre-Anesthesia Assessment: - The risks and benefits of the procedure and the sedation options and risks were discussed with the patient. All questions were answered and informed consent was obtained. - Patient identification and proposed procedure were verified prior to the procedure by the physician, the nurse and the rivet machine operator. The procedure was verified in the procedure room. After obtaining informed consent, the endoscope was passed under direct vision. Throughout the procedure, the patient's blood pressure, pulse, and oxygen saturations were monitored continuously. The Endoscope was introduced through the mouth, and advanced to the second part of duodenum. The upper GI endoscopy was accomplished without difficulty. The patient tolerated the procedure well. Findings: The Z-line was irregular and was found 40 cm from the incisors. A 3 cm hiatal hernia was present. Stigmata of recent bleeding at GE junction perhaps from recent biopsy 01/13/21. Mid esophagus venous bleb. Three cratered gastric ulcers one with pigmented material were found in the gastric antrum/distal body. The largest lesion was 10 mm in largest dimension. A single localized 10 mm erosion was found in the distal duodenal bulb. The exam was otherwise without abnormality. Impression: - Z-line irregular, 40 cm from the incisors. - 3 cm hiatal hernia. - Stigmata of recent bleeding at GE junction perhaps from recent biopsy 01/13/21. Mid esophagus venous bleb. - Gastric ulcers with pigmented material. - Duodenal erosion. - The examination was otherwise normal. - No specimens collected. Recommendation: - Return patient to hospital boss for ongoing care. - Hold coumadin for now. Clear liquid diet. Protonix 40 mg po bid. Avoid ASA and NSAIDS. Repeat EGD 6-8 weeks to document healing recommded. Rigo D. PoonZacarias MD 01/17/2021 3:09:33 PM This report has been signed electronically. Note Initiated On: 01/17/2021 2:33 PM Number of Addenda: 0 I attest to the content of the Intraoperative Record and orders documented therein, exceptions below {[id number]}
--- NOTE | 2021-01-17 15:11 | Anesthesiology Progress Note ---
Date of Service January 17, 2021 Anesthesia Post Procedure Vital Signs Vital Signs: Temp Pulse Pulse Resp BP BP BP 01/17/21 14:30 36.5 C 104 H 20 153/86 H 01/17/21 11:04 36.7 C 104 H 18 137/83 01/17/21 07:53 36.9 C 107 H 19 146/81 H 01/17/21 07:02 37.6 C H 106 H 18 146/86 H 01/17/21 06:00 37.1 C 105 H 18 119/75 01/17/21 05:00 37.2 C 111 H 20 137/84 01/17/21 04:30 37.5 C 113 H 20 107/78 01/17/21 04:15 37.4 C 112 H 18 126/83 01/17/21 04:00 37.4 C 113 H 20 119/80 01/17/21 03:16 37.2 C 115 H 18 115/59 L 01/17/21 02:47 88 20 01/17/21 02:15 37.2 C 121 H 20 113/74 01/17/21 01:15 37.4 C 118 H 20 124/74 01/17/21 00:45 37.6 C H 124 H 18 128/87 01/17/21 00:30 36.9 C 120 H 20 126/81 01/17/21 00:14 37.4 C 121 H 20 100/56 L 01/17/21 00:09 36.6 C 98 H 20 115/72 01/17/21 00:01 118 H 01/16/21 22:15 119 H 16 01/16/21 21:15 37.3 C 128 H 22 137/80 01/16/21 20:51 36.9 C 104 H 12 115/72 01/16/21 19:30 104 H 12 115/72 01/16/21 19:21 107 H 24 98/62 L 01/16/21 19:15 108 H 15 01/16/21 19:00 01/16/21 18:45 112/71 01/16/21 18:31 132/92 01/16/21 18:25 94/65 L 01/16/21 18:15 108 H 21 79/61 L 01/16/21 18:03 01/16/21 18:00 110 H 24 95/68 L 01/16/21 17:54 102 H 22 111/62 01/16/21 17:19 99 H 19 96/49 L 01/16/21 17:02 97 H 25 H 73/32 L 01/16/21 17:00 100 H 18 65/32 L 01/16/21 16:45 100 H 20 89/51 L 01/16/21 16:38 20 01/16/21 16:31 99 H 21 72/51 L 01/16/21 16:29 95 H 19 63/46 L 01/16/21 16:11 36.7 C 107 H 20 125/78 Pulse Ox 01/17/21 14:30 97 01/17/21 11:04 98 01/17/21 07:53 96 01/17/21 07:02 107 H 01/17/21 06:00 96 01/17/21 05:00 94 01/17/21 04:30 95 01/17/21 04:15 96 01/17/21 04:00 97 01/17/21 03:16 95 01/17/21 02:47 96 01/17/21 02:15 95 01/17/21 01:15 95 01/17/21 00:45 95 01/17/21 00:30 95 01/17/21 00:14 97 01/17/21 00:09 98 01/17/21 00:01 01/16/21 22:15 95 01/16/21 21:15 96 01/16/21 20:51 97 01/16/21 19:30 97 01/16/21 19:21 97 01/16/21 19:15 96 01/16/21 19:00 97 01/16/21 18:45 96 01/16/21 18:31 98 01/16/21 18:25 99 01/16/21 18:15 97 01/16/21 18:03 98 01/16/21 18:00 98 01/16/21 17:54 97 01/16/21 17:19 99 01/16/21 17:02 96 01/16/21 17:00 96 01/16/21 16:45 95 01/16/21 16:38 01/16/21 16:31 96 01/16/21 16:29 97 01/16/21 16:11 98 Transfer of Care Handoff Completed per policy Notes Mental Status: alert / awake / arousable Patient Amnestic to Procedure: Yes Nausea / Vomiting: adequately controlled Pain: adequately controlled Airway Patency, RR, SpO2: stable & adequate BP & HR: stable & adequate Hydration State: stable & adequate Anesthetic Complications: no major complications apparent
[2021-01-17] MEDS: PANTOprazole 40 MG TAB PO SCH (20:55)
[2021-01-18 07:01] LABS: Basophils # (auto) 0.07 K/uL (0-0.2); Basophils % (auto) 0.6 %; Eosinophils # (auto) 0.24 K/uL (0-0.5); Eosinophils % (auto) 2.1 %; Hematocrit (blood only) 27.9 % (42-52); Hemoglobin 9.2 g/dL (14.0-18.0); Immature Granulocytes # (auto) 0.04 K/uL (0.00-0.02); Immature Granulocytes % (auto) 0.4 %; Lymphocytes # (auto) 3.08 K/uL (1.2-3.4); Lymphocytes % (auto) 27.4 %; Mean Corpuscular Volume 85.1 fL (80-100); Mean Platelet Volume 9.3 fL (7.4-10.4); Monocytes # (auto) 0.99 K/uL (0.11-0.59); Monocytes % (auto) 8.8 %; Neutrophils # (auto) 6.81 K/uL (1.4-6.5); Neutrophils % (auto) 60.7 %; Platelet Count 325 K/uL (130-400); Red Blood Count 3.28 M/uL (4.7-6.1); White Blood Count 11.23 K/uL (4.8-10.8)
[2021-01-18 07:11] LABS: INR 1.2 (0.9-1.1); Prothrombin Time 12.3 Seconds (9.0-12.0)
[2021-01-18 07:30] LABS: Calcium 8.4 mg/dl (8.5-10.1); Creatinine Clr Calc Pharmacy 108.1 ml/min; Est GFR (African American) 84.2; Est GFR (Non-African American) 72.7; Magnesium 2.4 mg/dl (1.8-2.4); Potassium 4.5 mmol/L (3.5-5.1)
[2021-01-18] MEDS: PANTOprazole 40 MG TAB PO SCH (08:14)
--- NOTE | 2021-01-18 08:44 | Gastroenterology Progress Note ---
Date of Service January 18, 2021 Assessment & Plan (1) UGI bleed: EGD performed yesterday demonstrated stigmata of recent bleeding at GE junction and gastric ulcers with pigmented material. Duodenal erosion. Continue po PPI. Recommend holding Coumadin for 5-[address] Irving oconnor who plans to review Coumadin use with patient's criminal intelligence specialist. Patient will need repeat EGD in 6-8 weeks (and prior to bariatric surgery). Follow-up with GI outpatient and will assist with scheduling. Possible discharge today per Dr. Villatoro. Please refer to supervising physician addendum for further recommendations. Admission and Anticipated Discharge Date Admission Date: January 16, 2021 Subjective Patient reports he is doing well this morning. Denies abdominal pain, nausea, or vomiting. Feels as though he can advance diet - is currently on clears. Reports bowel movement yesterday with black stool. No bowel movement this morning. 01/17/2021: EGD Z-line irregular, 40 cm from the incisors. 3 cm hiatal hernia. Stigmata of recent bleeding at GE junction perhaps from recent biopsy 01/13/21. Mid esophagus venous bleb. Gastric ulcers with pigmented material. Duodenal erosion. The examination was otherwise normal. No specimens collected. Review of Systems Review of Systems: All systems reviewed & are unremarkable except as noted in Subjective Physical Exam Gastrointestinal (Abdomen): Inspection/Auscultation: normal bowel sounds Percussion/Palpation: abdomen soft; abdomen nontender, no guarding and abdomen not rigid Results & Data ([facility]) Vital Signs (Past 12 Hours) Vital Signs Temp Pulse Pulse Resp BP Pulse Ox 01/18/21 07:26 36.7 C 88 19 126/77 99 01/18/21 04:00 36.3 C L 67 20 113/80 100 01/18/21 01:45 86 01/17/21 23:31 36.8 C 84 18 123/83 99 01/17/21 22:45 86 16 98 Laboratory Results - last 24 hr 01/17/21 01/17/21 01/17/21 08:11 08:11 11:27 WBC RBC Hgb Hct MCV MCH MCHC RDW Std Deviation RDW Coeff of [place] Plt Count MPV Immature Gran % (Auto) Neut % (Auto) Lymph % (Auto) [place] % (Auto) Eos % (Auto) Baso % (Auto) Neut # (Auto) Lymph # (Auto) [place] # (Auto) Eos # (Auto) Baso # (Auto) Immature Gran # (Auto) PT INR Sodium 141 Potassium 4.5 Chloride 111 H Carbon Dioxide 19 L Anion Gap 10.0 BUN 75 H Creatinine 1.25 Est Cr Clr Drug Dosing 91.8 Est GFR ( Amer) 70.6 Est GFR (Non-Af Amer) 60.9 BUN/Creatinine Ratio 60.2 H Glucose 106 H POC Glucose 105 H Estimat Average Glucose 114 Hemoglobin A1c 5.6 Calcium 8.7 Magnesium 2.1 Troponin I 0.016 Triglycerides 218 H Cholesterol 159 LDL Cholesterol, Calc 85 VLDL Cholesterol, Calc 44 HDL Cholesterol 30 Cholesterol/HDL Ratio 5 01/18/21 01/18/21 01/18/21 06:27 06:27 06:27 WBC 11.23 H RBC 3.28 L Hgb 9.2 L Hct 27.9 L MCV 85.1 MCH 28.0 MCHC 33.0 RDW Std Deviation 47.0 H RDW Coeff of [place] 15.0 H Plt Count 325 MPV 9.3 Immature Gran % (Auto) 0.4 Neut % (Auto) 60.7 Lymph % (Auto) 27.4 [place] % (Auto) 8.8 Eos % (Auto) 2.1 Baso % (Auto) 0.6 Neut # (Auto) 6.81 H Lymph # (Auto) 3.08 [place] # (Auto) 0.99 H Eos # (Auto) 0.24 Baso # (Auto) 0.07 Immature Gran # (Auto) 0.04 H PT 12.3 H INR 1.2 H Sodium 139 Potassium 4.5 Chloride 110 H Carbon Dioxide 25 Anion Gap 4.0 BUN 52 H Creatinine 1.08 Est Cr Clr Drug Dosing 108.1 Est GFR ( Amer) 84.2 Est GFR (Non-Af Amer) 72.7 BUN/Creatinine Ratio 48.0 H Glucose 99 POC Glucose Estimat Average Glucose Hemoglobin A1c Calcium 8.4 L Magnesium 2.4 Troponin I Triglycerides Cholesterol LDL Cholesterol, Calc VLDL Cholesterol, Calc HDL Cholesterol Cholesterol/HDL Ratio
--- NOTE | 2021-01-18 12:58 | Electrocardiogram Report ---
Test Reason : Blood Pressure : / mmHG Vent. Rate : 090 BPM Atrial Rate : 090 BPM P-R Int : 170 ms QRS Dur : 128 ms QT Int : 368 ms P-R-T Axes : 016 -38 088 degrees QTc Int : 450 ms Normal sinus rhythm Left axis deviation Non-specific intra-ventricular conduction block Abnormal ECG When compared with ECG of 16-JAN-2021 16:50, Questionable change in QRS duration Confirmed by Albert Gamble ([id number]) on 01/18/2021 12:58:16 PM Referred By: REFERRED SELF Confirmed By:Albert Gamble
--- NOTE | 2021-01-18 14:01 | Progress Notes ---
DATE: 01/18/2021 Addition to the progress note by Priya Aviles: I examined the patient, talked to him and reviewed the chart, labs and endoscopy. The patient has melena and anemia, probably from some ulcers, most likely bleeding site was the one in the antrum. The patient is currently asymptomatic and stable. He will be discharged on appropriate medication with a followup EGD in 6-8 weeks. We advised him to hold the Coumadin for about a week and then check with the patient's manager stylist about when to resume after that.
--- NOTE | 2021-01-18 14:21 | Discharge Summary ---
Date of Service January 18, 2021 Admission HPI Per Admitting Provider See GI consult from today for full details. Pt s/p EGD wtih biopsy 01/13/21 at [facility] as preop for bariatric surgery. He presents with melena and anemia. Principal Diagnosis Upper GI bleed Discharge Exam Constitutional WD/WN, vitals as above + obese Eyes EOM intact bilaterally; no conjunctival abnormality ENMT external ear and nose normal, oropharynx normal Neck trachea midline, no thyromegaly normal visual inspection Respiratory normal respiratory effort, lungs clear to auscultation no respiratory distress Cardiovascular Rate/Rhythm: regular rhythm and + tachycardic Heart Sounds: normal S1 and normal S2 Extremities: no edema Gastrointestinal (Abdomen) Inspection/Auscultation: abdomen normal to inspection; abdomen not distended Musculoskeletal no cyanosis or clubbing, extremities motor strength 5/5 Skin no rashes, warm and dry Neurologic moves all extremities and awake Psychiatric Orientation: alert, oriented to person and cooperative Discharge Data Allergies Allergy/AdvReac Type Severity Reaction Status Date / Time gabapentin AdvReac Intermediate see Verified 01/16/21 18:54 comment: shortness of breath,palpitations Consultations 01/16/21 19:29 ED Decision to Admit Stat 01/16/21 21:14 Consult Gastroenterology Routine Procedures Performed Operation Date: 01/17/21 17:45 Actual Procedures p Esophagogastroduodenoscopy - Rigo Poon Ordered Studies 01/16/21 16:09 CT abd pelvis IV con only Stat CT head/brain wo con Stat Hospital Course (1) UGI bleed: Patient presented hypotensive, syncope x2, HGB 10.9, and dark stool x1 this morning--- HGB 13.6 on [id number]. GI bleed with acute blood loss anemia due to ulcers and possibly recent biopsy at GE junction, a possible complication of care. - Received 2 units of PRBCs on 01/16 for continued downtrend in hgb - Given vitamin K to reverse INR. - Protonix bolus and drip inpatient. - EGD on 01/18 showed multiple erosions as well as some slight signs of bleeding from the prior biopsy sites. Warfarin was held, and GI asks that it be held for 5-7 days. He will see his dietary service aide to determine his afib burden and if he can avoid anticoagulation. Maybe a Watchman is an option? - PPI PO BID x 6 weeks. He will need a repeat EGD in 6 weeks prior to his bariatric surgery to ensure healing. (2) Duodenitis: As above - Continue on PPI as outpatient (3) HTN (hypertension): BP today was 125/75. - Held all antihypertensives while inpatient. - On discharge, only restarted his beta-kate. Will hold his other HTN meds as he lost significant blood volume. He was instructed to monitor his BP at home and discuss when to restart his BP meds with his dietary service aide. (4) Venous stasis ulcer: Chronic. No indication of infection. - No acute needs (5) Afib: Holding warfarin at present. - Restarted metoprolol on discharge. (6) Diastolic CHF: Preserved EF. - Hold diuretics until hemodynamically stable - Presently euvolemic on exam, but given the fluids and blood, will likely restart diuretic today after EGD. (7) DIANDRA treated with BiPAP: - Continue BIPAP 12/06 or titrate to patient needs for adequate VT and SPO2. 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 - BUN elevated with GI bleed - Follow STOCK HANDLER FLOORPERSON -> Remained at baseline during admission. (9) DVT prophylaxis: SCDs - Holding heparin for UGIB Total Time Total Time Spent Total Time Spent (In Minutes): 35 Discharge Plan Discharge Items Patient Disposition: Home - Self-Care Reason For Visit: SYNCOPE,DIZZINESS Discharge Diagnosis: Upper GI bleed Activity: Resume your previous activity Non-emergency contact: Primary Care Provider, Sleeping Car Porter and Bench Worker Helper Call non-emergency contact if: your symptoms worsen Follow-up/Referrals: Morro Durán DO [Physician] - (Please see Dr. Durán this week or next for an update on your afib. [facility] WILL CALL WITH APPOINTMENT) Rodríguez Aguiar [Physician] - 02/04/21 9:00 am (Please see Dr. Aguiar or your [facility] GI doctor for your repeat EGD before your bariatric surgery.) Black Cruz MD [Primary Care Provider] - 01/24/21 2:50 pm Diet: Heart Healthy Addtl Attending Provider Instructions: Mr. Burgess, You were admitted for a GI bleed in your stomach and small intestine (duodenum) that was caused by some erosions. The bleeding has stopped thanks to the acid blocking medication and also by stopping your warfarin and giving you vitamin K which made your blood no longer thin. Please hold your warfarin for at least 1 week. I spoke with Dr. Durán's office, and they are ok with this. They will see you in the next week to discuss the il ed for anticoagulation (warfarin) at all in the future and will likely set you up with a heart monitor to see if you are in atrial fibrillation at all. If not, you may be able to stop warfarin indefinitely. You should take the acid-blocking medication (pantoprazole) twice per day for at least 6 weeks. Please follow up with [facility] to schedule your next EGD to make sure these ulcers have healed. This needs to happen before your surgery. Please avoid any NSAIDS (eg ibuprofen, naproxen, Motrin, Aleve, and aspirin). Tylenol is ok in modest doses. Because of your blood loss, I am stopping two of your 3 blood pressure medications. You will likely need these again in a few days/weeks as your blood volumes gets back to normal. Please let Dr. Durán know this as well. Please check your blood pressure once a day until you see him, and he can restart the medications as needed. Pending Studies at Discharge: No Stand-Alone Forms: My [facility], Smoking Cessation Medications and DC Order Prescriptions: New pantoprazole 40 mg Tablet,Delayed Release (Dr/Ec) 40 mg PO BID Qty: 60 RF: 0 Continued sildenafil (pulm.hypertension) 20 mg tablet 20 mg PO PRN RF: 0 metronidazole 0.75 % gel 1 applic topical PRN RF: 0 furosemide [Lasix] 20 mg tablet 20 mg PO DAILY PRN (Reason: edema) RF: 0 cholecalciferol (vitamin D3) 25 mcg (1,000 unit) capsule 25 mcg PO DAILY RF: 0 diclofenac sodium 1 % gel 1 ea topical QID PRN (Reason: pain) RF: 0 metoprolol succinate [Toprol XL] 25 mg tablet extended release 24 hr 25 mg PO QPM RF: 0 acetaminophen 500 mg capsule 1,000 mg PO BID PRN (Reason: pain) RF: 0 cetirizine 10 mg Tablet 10 mg PO QAM PRN (Reason: Allergic Symptoms) RF: 0 Discontinued warfarin 10 mg tablet 5 - 10 mg PO UD RF: 0 spironolactone 25 mg Tablet 25 mg PO QAM RF: 0 lisinopril-hydrochlorothiazide 20-25 mg Tablet 1 tab PO BID RF: 0 Discharge Orders: Discharge Order (Routine); Ordered 01/18/21 Ordered By: Deep Villatoro Admission Data Admit Date/Time: 01/16/21 20:00 Attending Provider: Deep Villatoro Admit Provider: Deep Villatoro Primary Care Provider: Black Cruz Other Providers: Rodríguez Aguiar Other Interventions: Discharge Summary Assessment (RN) Last Done: 01/18/21 11:13 Coding Level of Care Code D/C Day Management >30 mins Diagnoses UGI bleed K92.2 Duodenitis K29.80 HTN (hypertension) I10 Hypertension type: essential hypertension Venous stasis ulcer I83.002; L97.208 Venous stasis ulcer site: calf Varicose vein presence: with varicose veins Laterality: unspecified laterality Non-pressure ulcer stage: with other severity Afib I48.0 Atrial fibrillation type: paroxysmal Diastolic CHF I50.32 Heart failure chronicity: chronic DIANDRA treated with BiPAP G47.33 CKD (chronic kidney disease), stage III N18.30 DVT prophylaxis Z29.9
== END 2021-01-18 13:44 | disposition home or self-care (01) | DRG 919 ==
LOC: ED 16:03 → 2S 20:00 → SUATTDRO 20:00 → 2S 20:51